=== PATIENT | female | born 1960 | race American Indian/Alaskan Native ===

== ENCOUNTER 2017-05-31 05:46 | Emergency (ER) | payer MEDICAID, OTHER ==
[2017-05-31 05:47] VITALS: BMI 31.8
--- NOTE | 2017-05-31 06:01 | C.PDOC ---
Time Seen by Provider: 05/31/17 06:01 Past Medical History - Medical History PMH: Fractures (right shoulder) Surgical History: Denies: Pacemaker Family History: States: Unknown Family Hx - Social History Hx Alcohol Use: No Hx Substance Use: No - Immunization History Hx Tetanus Toxoid Vaccination: No Hx Influenza Vaccination: No Hx Pneumococcal Vaccination: No Disposition Counseled Patient/Family Regarding: Studies Performed, Diagnosis - Disposition Disposition Time: 06:01
[2017-05-31 06:07] VITALS: TEMP 98.1
--- NOTE | 2017-05-31 06:09 | C.PDOC ---
History Of Present Illness pt c/o bleeding gum. Has had tooth extraction and the site, #15, Was [id number]. No f/c/n/v. speaking in complete sentences No active bleeding observed now Time Seen by Provider: 05/31/17 06:01 Chief Complaint (Nursing): Dental Pain History Per: Patient History/Exam Limitations: no limitations Onset/Duration Of Symptoms: Hrs Current Symptoms Are (Timing): Still Present Severity: Moderate Pain Scale Rating Of: 4 Quality: Positive for: Dull Recent travel outside of the [place]: No Additional History Per: Patient Past Medical History Reviewed: Historical Data, Nursing Documentation, Vital Signs Vital Signs: Last Vital Signs Temp 98.1 F 05/31/17 05:58 Pulse 103 H 05/31/17 05:58 Resp 20 05/31/17 05:58 BP 188/104 H 05/31/17 05:58 Pulse Ox 98 05/31/17 06:14 - Medical History PMH: Fractures (right shoulder), HTN Surgical History: Denies: Pacemaker Family History: States: No Known Family Hx - Social History Hx Alcohol Use: Yes Hx Substance Use: No - Immunization History Hx Tetanus Toxoid Vaccination: No Hx Influenza Vaccination: No Hx Pneumococcal Vaccination: No Review Of Systems Constitutional: Negative for: Fever, Chills ENT: Positive for: Other (bleeding gum). Negative for: Mouth Pain Cardiovascular: Negative for: Chest Pain, Palpitations Respiratory: Negative for: Shortness of Breath Gastrointestinal: Positive for: Abdominal Pain (milf ruq). Negative for: Nausea , Vomiting Genitourinary: Negative for: Dysuria Musculoskeletal: Negative for: Back Pain Skin: Negative for: Rash Neurological: Negative for: Weakness Psych: Negative for: Anxiety Physical Exam - Physical Exam Appears: Non-toxic, No Acute Distress Skin: Warm, Dry Head: Normacephalic Eye(s): bilateral: Normal Inspection Gingiva: Bleeding (# 15 space) Neck: Supple Chest: Symmetrical Cardiovascular: Rhythm Regular Respiratory: No Rales, No Rhonchi, No Wheezing Gastrointestinal/Abdominal: Soft, No Tenderness, Distention Back: No CVA Tenderness Extremity: Normal ROM Extremity: Bilateral: Atraumatic Pulses: Left Dorsalis Pedis: Normal, Right Dorsalis Pedis: Normal Neurological/Psych: Oriented x3, Normal Speech, Normal Cognition Gait: Steady ED Course And Treatment - Laboratory Results Result Diagrams: 05/31/17 06:30 O2 Sat by Pulse Oximetry: 98 Pulse Ox Interpretation: Normal Disposition Counseled Patient/Family Regarding: Studies Performed, Diagnosis - Disposition Disposition Time: 06:08 Condition: FAIR Forms: [facility] (Nepali) - Clinical Impression Clinical Impression: Abdominal pain, Gingival bleeding Physician Patient Turnover Patient Signed Over To: Gina Bowser Handoff Comments: pending labs and dispo
[2017-05-31 06:45] LABS: BASO % 0.7 % (0.0-2.0); CHLORIDE 100 mmol/L (98-107); EOS # 0.2 K/uL (0.0-0.7); HEMATOCRIT 35.1 % (34.0-47.0); LYMPH # 1.9 K/uL (1.0-4.3); LYMPH % 50.6 % (20.0-40.0); MEAN CELL VOLUME 99.1 fL (81.0-99.0); MEAN CORPUSCULAR HGB CONC 34.3 g/dL (33.0-37.0); MEAN PLATELET VOLUME 8.2 fL (7.2-11.7); MONO # 0.4 K/uL (0.0-0.8); MONO % 12.1 % (0.0-10.0); NRBC % 0.2 % (0.0-2.0); RED CELL DISTRIBUTION WIDTH 16.4 % (11.5-14.5); WHITE BLOOD COUNT 3.7 K/uL (4.8-10.8)
[2017-05-31 06:46] LABS: POTASSIUM 4.3 mmol/L (3.6-5.2); SODIUM 128 mmol/L (132-148)
[2017-05-31 06:48] LABS: ALB/GLOB RATIO 0.5 (1.0-2.1); BILIRUBIN,TOTAL 1.7 mg/dL (0.2-1.3); CARBON DIOXIDE 19 mmol/L (22-30); GFR AFRICAN-AMERICAN > 60; TOTAL PROTEIN 8.7 g/dL (6.3-8.3)
[2017-05-31 06:49] LABS: ALKALINE PHOSPHATASE 167 U/L (38-126); ALT/SGPT 64 U/L (9-52); AST/SGOT 100 U/L (14-36); BLOOD UREA NITROGEN 5 mg/dL (7-17); CALCIUM 8.5 mg/dl (8.6-10.4); GLUCOSE,RANDOM 85 mg/dL (65-105)
[2017-05-31 07:09] LABS: URINE BILIRUBIN NEGATIVE (NEGATIVE); URINE BLOOD NEGATIVE (NEGATIVE); URINE COLOR Yellow (YELLOW); URINE GLUCOSE (UA) NORMAL (Normal); URINE KETONE NEGATIVE (NEGATIVE); URINE LEUKOCYTE ESTERASE NEG Leu/uL (Negative); URINE PROTEIN NEGATIVE (NEGATIVE); WBC URINE 2 /hpf (0-5)
[2017-05-31 07:28] LABS: INR 1.4
[2017-05-31 07:48] VITALS: RESP 18
[2017-05-31 08:17] VITALS: BP 157/75; O2SAT 100
[2017-05-31 08:24] VITALS: PULSE 88
== END 2017-05-31 08:23 | disposition home or self-care (01) ==
LOC: C.ER 05:46
DX: K06.8 Other specified disorders of gingiva and edentulous alveolar ridge (principal); R10.9 Unspecified abdominal pain; I10 Essential (primary) hypertension; F17.210 Nicotine dependence, cigarettes, uncomplicated

== ENCOUNTER 2017-08-10 22:22 | Emergency (ER) | payer OTHER ==
[2017-08-10 22:22] VITALS: BMI 31.8
[2017-08-10 22:33] VITALS: RESP 18
--- NOTE | 2017-08-10 22:59 | C.PDOC ---
Time Seen by Provider: 08/10/17 22:59 Chief Complaint (Nursing): ENT Problem Past Medical History Vital Signs: Last Vital Signs Temp 97.9 F 08/10/17 22:30 Pulse 109 H 08/10/17 22:30 Resp 18 08/10/17 22:30 BP 139/83 08/10/17 22:30 Pulse Ox 99 08/10/17 22:30 - Medical History PMH: Fractures (right shoulder), HTN Surgical History: Denies: Pacemaker Family History: States: Unknown Family Hx - Social History Hx Alcohol Use: Yes Hx Substance Use: No - Immunization History Hx Tetanus Toxoid Vaccination: No Hx Influenza Vaccination: No Hx Pneumococcal Vaccination: No ED Course And Treatment O2 Sat by Pulse Oximetry: 99 Disposition Counseled Patient/Family Regarding: Studies Performed, Diagnosis - Disposition Referrals: Grecia Stringer MD [Primary Care Provider] - Disposition Time: 22:59
--- NOTE | 2017-08-10 23:10 | C.PDOC ---
History Of Present Illness 57 y/o F c PMHx anemia p/w epistaxis intermittent x 3 weeks. Patient drank alcohol tonight and told daughter that she felt weak so daughter brought patient to ED. No active bleeding at this time. Patient states when she sticks a tissue in nostril sometimes, blood comes down. Otherwise, denies chest pain, dyspnea, vomiting, LOC. Patient also requesting sore on R leg to be seen as patient is diabetic. Time Seen by Provider: 08/10/17 22:59 Chief Complaint (Nursing): ENT Problem Past Medical History Vital Signs: Last Vital Signs Temp 97.9 F 08/10/17 22:30 Pulse 109 H 08/10/17 22:30 Resp 18 08/10/17 22:30 BP 139/83 08/10/17 22:30 Pulse Ox 99 08/10/17 23:37 - Medical History PMH: Fractures (right shoulder), HTN Surgical History: Denies: Pacemaker Family History: States: Unknown Family Hx - Social History Hx Alcohol Use: Yes Hx Substance Use: No - Immunization History Hx Tetanus Toxoid Vaccination: No Hx Influenza Vaccination: No Hx Pneumococcal Vaccination: No Review Of Systems Except As Marked, All Systems Reviewed And Found Negative. Constitutional: Negative for: Fever Cardiovascular: Negative for: Chest Pain Physical Exam - Physical Exam Additional Physical Exam Comments: Gen: No acute distress. Head: Normocephalic, atraumatic. Eyes: PERRL. ENT: Moist mucous membranes. No septal hematoma. No active bleeding. Neck: Supple. Chest: No tenderness. CV: Regular rate. Radial pulses 2+ bilaterally. Resp: Clear to auscultation bilaterally. Abd: Soft, nontender, nondistended. Extremities: No swelling or tenderness. Skin: Noninfected, shallow ulcer seen to R jefferson. Neuro: Alert, no focal deficit. ED Course And Treatment - Laboratory Results Result Diagrams: 08/10/17 23:17 O2 Sat by Pulse Oximetry: 99 Medical Decision Making Medical Decision Making: Patient states she has been applying hydrogen peroxide to wound. I instructed patient to discontinue hydrogen peroxide and to follow up with wound care clinic for wound management. Advised to use humidifier, vaseline to nostrils, and not to insert anything or digits into nostrils. Checked Hb due to prolonged blood loss and complaint of weakness. Patient in no distress. Hb 10. Patient's Hb 12 earlier this year. Also with thrombocytopenia, patient has seen Dr. Lui in the past and has had pancytopenia. This anemia likely not new but perhaps contributed by bleeding. Therefore, patient offered blood transfusion but she refused due to risks. She states she will follow up with Hematology as well as ENT. Instructed to return to ED for bleeding that does not stop after pressure applied. Mental status also likely due to alcohol intoxication. Patient will be chaperoned home by daughter. Disposition - Disposition Referrals: Radha Lui MD [Staff Provider] - Juvenal Sorensen MD [Staff Provider] - [facility] [place] [Outside] [facility] [Outside] Disposition Time: 23:40 Condition: STABLE Instructions: Nosebleed (ED), Anemia (ED) Forms: [facility] (Emirati) - Clinical Impression Clinical Impression: Anemia
[2017-08-10 23:20] LABS: BASO % 0.6 % (0.0-2.0); EOS # 0.4 K/uL (0.0-0.7); EOS % 8.3 % (0.0-4.0); HEMATOCRIT 28.9 % (34.0-47.0); LYMPH # 3.4 K/uL (1.0-4.3); MEAN CELL VOLUME 97.6 fL (81.0-99.0); MEAN CORPUSCULAR HEMOGLOBIN 34.1 pg (27.0-31.0); MEAN CORPUSCULAR HGB CONC 34.9 g/dL (33.0-37.0); MEAN PLATELET VOLUME 7.1 fL (7.2-11.7); MONO # 0.5 K/uL (0.0-0.8); MONO % 9.1 % (0.0-10.0); NRBC % 0.1 % (0.0-2.0); RED CELL DISTRIBUTION WIDTH 18.1 % (11.5-14.5); WHITE BLOOD COUNT 5.4 K/uL (4.8-10.8)
[2017-08-11 00:04] VITALS: BP 129/84; PULSE 96; TEMP 97.8; O2SAT 97
== END 2017-08-11 00:04 | disposition home or self-care (01) ==
LOC: C.ER 22:22 → SUPCPDRO 22:22 → C.ER 08-11 00:04
DX: D64.9 Anemia, unspecified (principal)

== ENCOUNTER 2018-12-16 23:28 | Inpatient (IN) | payer OTHER ==
[2018-12-16 23:29] VITALS: BMI 31.8
--- NOTE | 2018-12-16 23:59 | C.PDOC ---
History Of Present Illness Patient presents with SOV and increasing abdominal girth. Patient known to have cirrhosis and had ascites with paracentesis done 2 weeks ago but fluids have reaccumulated. Denies fever, chills, nausea, or vomiting. Time Seen by Provider: 12/16/18 23:59 Chief Complaint (Nursing): Abdominal Pain History Per: Patient History/Exam Limitations: no limitations Onset/Duration Of Symptoms: Days Current Symptoms Are (Timing): Still Present Severity: Moderate Pain Scale Rating Of: 4 Quality Of Discomfort: Unable To Describe Associated Symptoms: Other (SOB). denies: Fever, Chills, Nausea, Vomiting Exacerbating Factors: None Alleviating Factors: None Recent travel outside of the [place]: No Past Medical History Reviewed: Historical Data, Nursing Documentation, Vital Signs Vital Signs: Last Vital Signs Temp 98.1 F 12/16/18 23:32 Pulse 84 12/16/18 23:32 Resp 14 12/16/18 23:32 BP 146/87 12/16/18 23:32 Pulse Ox 100 12/16/18 23:32 Primary Care Provider: Grecia Stringer - Medical History PMH: Fractures (right shoulder), HTN Surgical History: Denies: Pacemaker Family History: States: No Known Family Hx - Social History Hx Alcohol Use: Yes Hx Substance Use: No - Immunization History Hx Tetanus Toxoid Vaccination: No Hx Influenza Vaccination: No Hx Pneumococcal Vaccination: No Review Of Systems Constitutional: Negative for: Fever, Chills Cardiovascular: Negative for: Chest Pain, Palpitations Respiratory: Positive for: Shortness of Breath. Negative for: Cough Gastrointestinal: Positive for: Other (Abdominal distention). Negative for: Nausea, Vomiting Neurological: Negative for: Weakness, Numbness Physical Exam - Physical Exam Appears: Non-toxic Skin: Warm, Dry Head: Normacephalic Oral Mucosa: Moist Chest: Symmetrical, No Tenderness Cardiovascular: Rhythm Regular Respiratory: No Rales, No Rhonchi, No Wheezing Gastrointestinal/Abdominal: Soft, No Tenderness, Distention (w/ positive fluid wave), Ascites Extremity: Pedal Edema (Trace) Neurological/Psych: Oriented x3 ED Course And Treatment - Laboratory Results Result Diagrams: 12/17/18 00:53 12/17/18 00:53 ECG: Interpreted By Me, Viewed By Me ECG Rhythm: Sinus Rhythm (83), Nonspecific Changes O2 Sat by Pulse Oximetry: 100 (Room air) Pulse Ox Interpretation: Normal Progress Note: EKG, blood work, CXR, and urinalysis ordered. Disposition Discussed With DrThanh: Grecia Stringer Comment: the pt on his service and took over the care at 1:44 AM Doctor Will See Patient In The: Hospital Counseled Patient/Family Regarding: Studies Performed, Diagnosis - Disposition Disposition: HOSPITALIZED Disposition Time: 23:59 Condition: FAIR Forms: [facility] (Ecuadorean) - POA Present On Arrival: Poor Glycemic Control - Clinical Impression Clinical Impression: Abdominal pain, Ascites - Scribe Statement The provider has reviewed the documentation as recorded by the Scribe Jeramie Farr All medical record entries made by the Scribe were at my direction and personally dictated by me. I have reviewed the chart and agree that the record accurately reflects my personal performance of the history, physical exam, medical decision making, and the department course for this patient. I have also personally directed, reviewed, and agree with the discharge instructions and disposition. Decision To Admit - Pt Status Changed To: Hospital Disposition Of: Observation - . Bed Request Type: Regular Admitting Physician: Jeramie Pollock Patient Diagnosis: Abdominal pain, Ascites
[2018-12-17 01:03] LABS: BASO % 0.9 % (0.0-2.0); EOS # 0.2 K/uL (0.0-0.7); EOS % 4.3 % (0.0-4.0); LYMPH # 1.6 K/uL (1.0-4.3); LYMPH % 39.5 % (20.0-40.0); MEAN CELL VOLUME 97.7 fL (81.0-99.0); MEAN CORPUSCULAR HEMOGLOBIN 32.7 pg (27.0-31.0); MEAN CORPUSCULAR HGB CONC 33.5 g/dL (33.0-37.0); MEAN PLATELET VOLUME 7.7 fL (7.2-11.7); MONO # 0.8 K/uL (0.0-0.8); MONO % 19.8 % (0.0-10.0); NEUT # 1.4 K/uL (1.8-7.0); NEUT % 35.5 % (50.0-75.0); NRBC % 0.1 % (0.0-2.0); RBC 3.75 Mil/uL (3.80-5.20); RED CELL DISTRIBUTION WIDTH 15.2 % (11.5-14.5); WHITE BLOOD COUNT 3.9 K/uL (4.8-10.8)
[2018-12-17 01:04] LABS: HEMOGLOBIN 12.3 g/dL (11.0-16.0)
[2018-12-17 01:13] LABS: ALB/GLOB RATIO 0.7 (1.0-2.1); ALBUMIN 2.8 g/dL (3.5-5.0); ALT/SGPT 54 U/L (9-52); AST/SGOT 83 U/L (14-36); BLOOD UREA NITROGEN 15 mg/dL (7-17); CALCIUM 8.6 mg/dl (8.6-10.4); GFR NON-AFRICAN AMERICAN 51; LIPASE 390 U/L (23-300)
[2018-12-17 02:15] VITALS: RESP 20
[2018-12-17] MEDS: (Novolin R) Insulin Human Regular 100 units/ml vial SC SCH ×4 (07:56→21:25)
[2018-12-17 08:24] LABS: ALB/GLOB RATIO 0.6 (1.0-2.1); ALBUMIN 2.1 g/dL (3.5-5.0); CALCIUM 8.3 mg/dl (8.6-10.4)
--- NOTE | 2018-12-17 08:32 | CP.PCM.CON ---
History of Present Illness - History of Present Illness History of Present Illness: CC sob with severe ascites HPI Pt with T2dm, Liver cirrhosis had paracentesis 2 weeks ago with re- accumulation. Pt admitted via ER with progressive sob and increasing abdominal girth. Review of Systems - Cardiovascular Cardiovascular: Dyspnea on Exertion, Leg Edema, Orthopnea - Respiratory Respiratory: Dyspnea, Dyspnea on Exertion Past Patient History - Past Medical History & Family History Past Medical History?: Yes - Past Social History Smoking Status: "2xweek" - CARDIAC Hx Cardiac Disorders: No Hx Angina: No Hx Atrial Fibrillation: No Hx Hypertension: Yes Hx Pacemaker: No - PULMONARY Hx Respiratory Disorders: No - NEUROLOGICAL Hx Paralysis: No - HEENT Hx Blind: Yes Hx Cataracts: Yes Other/Comment: uveitis, nearly blind - ENDOCRINE/METABOLIC Hx Endocrine Disorders: Yes Hx Diabetes Mellitus Type 2: Yes - HEMATOLOGICAL/ONCOLOGICAL Hx Blood Transfusions: No Hx Blood Transfusion Reaction: No Hx Hepatitis C: Yes - MUSCULOSKELETAL/RHEUMATOLOGICAL Hx Falls: No - PSYCHIATRIC Hx Substance Use: No - SURGICAL HISTORY Hx Surgeries: Yes Hx Cataract Extraction: Yes Hx Eye Surgery: Yes (cornea implant left) - ANESTHESIA Hx Anesthesia: Yes Hx Anesthesia Reactions: No Hx Malignant Hyperthermia: No Meds Allergies/Adverse Reactions: Allergies Allergy/AdvReac Type Severity Reaction Status Date / Time No Known Allergies Allergy Verified 08/10/17 22:33 - Medications Medications: Current Medications Carvedilol (Coreg) 6.25 mg PO BID [facility] Furosemide (Lasix) 40 mg IVP DAILY [facility] Home Med (Alendronate Sodium [Alendronate (Fosamax)]) 70 mg PO QWK [facility] Insulin Human Regular (Novolin R) 0 unit [facility]; Protocol Last Admin: 12/17/18 07:56 Dose: Not Given Losartan Potassium (Cozaar) 100 mg PO DAILY [facility] Pantoprazole Sodium (Protonix Ec Tab) 20 mg PO DAILY [facility] Spironolactone (Aldactone) 25 mg PO BID [facility] Physical Exam - Head Exam Head Exam: NORMAL INSPECTION - Eye Exam Additional comments: +legally blind - Neck Exam Neck exam: Positive for: Full Rom - Respiratory Exam Respiratory Exam: Decreased Breath Sounds - Cardiovascular Exam Cardiovascular Exam: REGULAR RHYTHM - GI/Abdominal Exam GI & Abdominal Exam: Distended, Soft Additional comments: Ascitic - Neurological Exam Neurological exam: Alert Results - Vital Signs Recent Vital Signs: Last Vital Signs Temp 98.3 F 12/17/18 07:25 Pulse 82 12/17/18 07:25 Resp 20 12/17/18 07:25 BP 109/66 12/17/18 07:25 Pulse Ox 99 12/17/18 07:25 - Labs Result Diagrams: 12/17/18 00:53 12/17/18 07:21 Labs: Laboratory Results - last 24 hr 12/16/18 12/17/18 12/17/18 23:32 00:53 00:53 WBC 3.9 L RBC 3.75 L Hgb 12.3 D Hct 36.6 MCV 97.7 MCH 32.7 H MCHC 33.5 RDW 15.2 H Plt Count 73 L D MPV 7.7 Neut % (Auto) 35.5 L Lymph % (Auto) 39.5 [place] % (Auto) 19.8 H Eos % (Auto) 4.3 H Baso % (Auto) 0.9 Neut # (Auto) 1.4 L Lymph # (Auto) 1.6 [place] # (Auto) 0.8 Eos # (Auto) 0.2 Baso # (Auto) 0.0 Sodium 136 Potassium 5.7 H Chloride 108 H Carbon Dioxide 21 L Anion Gap 13 BUN 15 Creatinine 1.1 Est GFR ( Amer) > 60 Est GFR (Non-Af Amer) 51 POC Glucose (mg/dL) 123 H Random Glucose 102 Calcium 8.6 Total Bilirubin 0.9 AST 83 H ALT 54 H Alkaline Phosphatase 193 H Ammonia Total Protein 7.0 Albumin 2.8 L Globulin 4.2 H Albumin/Globulin Ratio 0.7 L Lipase 390 H Alcohol, Quantitative < 10 12/17/18 12/17/18 00:53 07:21 WBC RBC Hgb Hct MCV MCH MCHC RDW Plt Count MPV Neut % (Auto) Lymph % (Auto) Hancock % (Auto) Eos % (Auto) Baso % (Auto) Neut # (Auto) Lymph # (Auto) [place]ancock # (Auto) Eos # (Auto) Baso # (Auto) Sodium 134 Potassium 4.8 Chloride 110 H Carbon Dioxide 20 L Anion Gap 10 BUN 17 Creatinine 1.4 H Est GFR ( Amer) 47 Est GFR (Non-Af Amer) 39 POC Glucose (mg/dL) Random Glucose 99 Calcium 8.3 L Total Bilirubin 0.4 AST 63 H D ALT 46 Alkaline Phosphatase 174 H Ammonia < 9 L Total Protein 5.7 L Albumin 2.1 L D Globulin 3.5 Albumin/Globulin Ratio 0.6 L Lipase Alcohol, Quantitative
[2018-12-17] MEDS ORDERED: ALENDRONATE SODIUM 70 MG PO SCH ×2 (10:00)
[2018-12-17] MEDS ORDERED: Home Med 1 UNIT (Omeprazole [Omeprazole] 20 MG) PO SCH (10:00)
[2018-12-17] MEDS ORDERED: Potassium Chloride 10 mEq ER Tab PO SCH ×2 (10:00)
--- NOTE | 2018-12-17 10:49 | CP.PCM.CON ---
<Luisana Lee - Last Filed: 12/17/18 13:14> History of Present Illness - History of Present Illness History of Present Illness: GI Fellow PGY 5 Consult Note This is a 58yF with a pmhx of HTN, DM, Decompensated liver cirrhosis from HCV and alcohol abuse presenting with complaints of abdominal distention and pain. Pt reports she knew about having liver issues 1 year ago but found out she had liver cirrhosis in October 2018 when she presented with ascites and had 3 paracentesis since then. Pt also reports she was given antibiotics for 7 days after last paracentesis unclear if SBP, not on abx ppx.She reports she found out about HCV infection 6 months ago and was going to start treatment today with a medication for 4 months, unable to recall name. She reports having an EGD and colonoscopy with her GI DrThanh Guerrero at [facility] [place]. Denies any varices or GI Bleeding, no records for review, and patient is on Coreg bid. Pt reports her last drink was 6 months ago and she drank alot of beer for years, unable to quantify. She reports being on water pills that are not helping. Pt reports this is her 4th time coming in for abdominal distention, last paracentesis was 2 weeks ago. She denies fevers, chills, nausea or vomiting. Pt had a CT A/P IV contrast 06/2017 which was positive for cirrhosis, moderate ascities, negative portal HTN, thrombus, +porcelain gallbladder. Pt reports gallbladder was taken out due to high risk with cirrhosis. ROS: A 12pt ROS was negative except as above. Pmhx: As stated in HPI Pshx: None per pt FHx: Denies HCC SH: alcohol abuse, last drink 6 months ago, denies tobacco and IVDA Past Patient History - Past Medical History & Family History Past Medical History?: Yes - Past Social History Smoking Status: "2xweek" - CARDIAC Hx Cardiac Disorders: No Hx Angina: No Hx Atrial Fibrillation: No Hx Hypertension: Yes Hx Pacemaker: No - PULMONARY Hx Respiratory Disorders: No - NEUROLOGICAL Hx Paralysis: No - HEENT Hx Blind: Yes Hx Cataracts: Yes Other/Comment: uveitis, nearly blind - ENDOCRINE/METABOLIC Hx Endocrine Disorders: Yes Hx Diabetes Mellitus Type 2: Yes - HEMATOLOGICAL/ONCOLOGICAL Hx Blood Transfusions: No Hx Blood Transfusion Reaction: No Hx Hepatitis C: Yes - MUSCULOSKELETAL/RHEUMATOLOGICAL Hx Falls: No - PSYCHIATRIC Hx Substance Use: No - SURGICAL HISTORY Hx Surgeries: Yes Hx Cataract Extraction: Yes Hx Eye Surgery: Yes (cornea implant left) - ANESTHESIA Hx Anesthesia: Yes Hx Anesthesia Reactions: No Hx Malignant Hyperthermia: No Meds Allergies/Adverse Reactions: Allergies Allergy/AdvReac Type Severity Reaction Status Date / Time No Known Allergies Allergy Verified 08/10/17 22:33 - Medications Medications: Current Medications Carvedilol (Coreg) 6.25 mg PO BID [facility] Furosemide (Lasix) 40 mg IVP DAILY [facility] Home Med (Alendronate Sodium [Alendronate (Fosamax)]) 70 mg PO QWK [facility] Insulin Human Regular (Novolin R) 0 unit SC ACHS [facility]; Protocol Last Admin: 12/17/18 07:56 Dose: Not Given Losartan Potassium (Cozaar) 100 mg PO DAILY [facility] Morphine Sulfate (Morphine) 2 mg IVP Q4 PRN PRN Reason: Pain, severe (8-10) Last Admin: 12/17/18 09:03 Dose: 2 mg Pantoprazole Sodium (Protonix Ec Tab) 20 mg PO DAILY [facility] Spironolactone (Aldactone) 25 mg PO BID [facility] Physical Exam - Constitutional Appears: Non-toxic, No Acute Distress - Head Exam Head Exam: ATRAUMATIC, NORMAL INSPECTION, NORMOCEPHALIC - Eye Exam Eye Exam: EOMI, Normal appearance, PERRL - ENT Exam ENT Exam: Mucous Membranes Moist - Neck Exam Neck exam: Positive for: Full Rom, Normal Inspection - Respiratory Exam Respiratory Exam: Decreased Breath Sounds, Rales, NORMAL BREATHING PATTERN - Cardiovascular Exam Cardiovascular Exam: REGULAR RHYTHM, RRR, +S1, +S2 - GI/Abdominal Exam GI & Abdominal Exam: Diminished Bowel Sounds, Distended, Firm, Tenderness. absent: Guarding, Organomegaly - Rectal Exam Rectal Exam: Deferred - Extremities Exam Extremities exam: Positive for: full ROM, pedal edema - Back Exam Back exam: NORMAL INSPECTION - Neurological Exam Neurological exam: Alert, Oriented x3 - Psychiatric Exam Psychiatric exam: Normal Affect, Normal Mood - Skin Skin Exam: Dry, Intact, Normal Color, Warm Results - Vital Signs Recent Vital Signs: Last Vital Signs Temp 98.3 F 12/17/18 07:25 Pulse 82 12/17/18 07:25 Resp 20 12/17/18 07:25 BP 109/66 12/17/18 07:25 Pulse Ox 99 12/17/18 08:46 - Labs Result Diagrams: 12/17/18 00:53 12/17/18 07:21 Labs: Laboratory Results - last 24 hr 12/16/18 12/17/18 12/17/18 23:32 00:53 00:53 WBC 3.9 L RBC 3.75 L Hgb 12.3 D Hct 36.6 MCV 97.7 MCH 32.7 H MCHC 33.5 RDW 15.2 H Plt Count 73 L D MPV 7.7 Neut % (Auto) 35.5 L Lymph % (Auto) 39.5 [place] % (Auto) 19.8 H Eos % (Auto) 4.3 H Baso % (Auto) 0.9 Neut # (Auto) 1.4 L Lymph # (Auto) 1.6 [place] # (Auto) 0.8 Eos # (Auto) 0.2 Baso # (Auto) 0.0 Sodium 136 Potassium 5.7 H Chloride 108 H Carbon Dioxide 21 L Anion Gap 13 BUN 15 Creatinine 1.1 Est GFR ( Amer) > 60 Est GFR (Non-Af Amer) 51 POC Glucose (mg/dL) 123 H Random Glucose 102 Calcium 8.6 Total Bilirubin 0.9 AST 83 H ALT 54 H Alkaline Phosphatase 193 H Ammonia Total Protein 7.0 Albumin 2.8 L Globulin 4.2 H Albumin/Globulin Ratio 0.7 L Lipase 390 H Alcohol, Quantitative < 10 12/17/18 12/17/18 00:53 07:21 WBC RBC Hgb Hct MCV MCH MCHC RDW Plt Count MPV Neut % (Auto) Lymph % (Auto) [place] % (Auto) Eos % (Auto) Baso % (Auto) Neut # (Auto) Lymph # (Auto) [place] # (Auto) Eos # (Auto) Baso # (Auto) Sodium 134 Potassium 4.8 Chloride 110 H Carbon Dioxide 20 L Anion Gap 10 BUN 17 Creatinine 1.4 H Est GFR ( Amer) 47 Est GFR (Non-Af Amer) 39 POC Glucose (mg/dL) Random Glucose 99 Calcium 8.3 L Total Bilirubin 0.4 AST 63 H D ALT 46 Alkaline Phosphatase 174 H Ammonia < 9 L Total Protein 5.7 L Albumin 2.1 L D Globulin 3.5 Albumin/Globulin Ratio 0.6 L Lipase Alcohol, Quantitative Assessment & Plan - Assessment and Plan (Free Text) Assessment: 1. Decompensated Cirrhosis etiology alcohol and HCV: MELD-NA: 17, CP: C 2. Ascites possible hx of SBP 3. Hx HE 4. LEONORA 5. Porcelain Gallbladder -Pt with ascites, plan for paracentesis today and order body fluid studies to r/o SBP -Continue lasix 40mg and increase aldactone to 100mg -Monitor electrolytes, urine electrolytes -Start IV albumin 25% 25g q8hrs with elevated Cr and ascites s/p paracentesis with 8L removed -Monitor renal function, maybe pre-renal -Pt with grade 1 HE, lactulose qd for 3-4BM goal daily -Pt on Coreg, unsure if pt has varices, HR 80s -Check INR and MELD labs daily -Low salt diet -Per pt, high risk for cholecystectomy -Pt has had a previous extensive workup with Dr. Hilton at [facility] – [place] and is planned to be treated for HCV, pt unclear about what medication. Pt reports EGD for variceal screening and no varices per patient. Recommend that patient follow up with Dr. Hilton once patient is discharged. <Nabeel Kramer - Last Filed: 12/17/18 13:36> Meds - Medications Medications: Current Medications Albumin Human (Albumin Human 25% (12.5 Gm/50 Ml)) 25 gm IV Q8 [facility] Carvedilol (Coreg) 6.25 mg PO BID [facility] Last Admin: 12/17/18 11:20 Dose: Not Given Furosemide (Lasix) 40 mg IVP DAILY [facility] Last Admin: 12/17/18 12:35 Dose: 40 mg Insulin Human Regular (Novolin R) 0 unit SC [facility]; Protocol Last Admin: 12/17/18 12:39 Dose: Not Given Lactulose (Enulose) 20 gm PO [facility] Losartan Potassium (Cozaar) 100 mg PO DAILY [facility] Last Admin: 12/17/18 11:20 Dose: Not Given Morphine Sulfate (Morphine) 2 mg IVP Q4 PRN PRN Reason: Pain, severe (8-10) Last Admin: 12/17/18 09:03 Dose: 2 mg Pantoprazole Sodium (Protonix Ec Tab) 20 mg PO DAILY [facility] Last Admin: 12/17/18 12:35 Dose: 20 mg Spironolactone (Aldactone) 25 mg PO BID [facility] Last Admin: 12/17/18 12:35 Dose: 25 mg Results - Vital Signs Recent Vital Signs: Last Vital Signs Temp 98.3 F 12/17/18 07:25 Pulse 80 12/17/18 12:15 Resp 20 12/17/18 07:25 BP 110/74 12/17/18 12:35 Pulse Ox 99 12/17/18 08:46 - Labs Result Diagrams: 12/17/18 00:53 12/17/18 07:21 Labs: Laboratory Results - last 24 hr 12/16/18 12/17/18 12/17/18 23:32 00:53 00:53 WBC 3.9 L RBC 3.75 L Hgb 12.3 D Hct 36.6 MCV 97.7 MCH 32.7 H MCHC 33.5 RDW 15.2 H Plt Count 73 L D MPV 7.7 Neut % (Auto) 35.5 L Lymph % (Auto) 39.5 [place] % (Auto) 19.8 H Eos % (Auto) 4.3 H Baso % (Auto) 0.9 Neut # (Auto) 1.4 L Lymph # (Auto) 1.6 [place] # (Auto) 0.8 Eos # (Auto) 0.2 Baso # (Auto) 0.0 PT INR Sodium 136 Potassium 5.7 H Chloride 108 H Carbon Dioxide 21 L Anion Gap 13 BUN 15 Creatinine 1.1 Est GFR ( Amer) > 60 Est GFR (Non-Af Amer) 51 POC Glucose (mg/dL) 123 H Random Glucose 102 Calcium 8.6 Total Bilirubin 0.9 AST 83 H ALT 54 H Alkaline Phosphatase 193 H Ammonia Total Protein 7.0 Albumin 2.8 L Globulin 4.2 H Albumin/Globulin Ratio 0.7 L Lipase 390 H Fluid Source Fluid Appearance Fluid WBC Fluid RBC Fluid Tot Cell Count Fluid Neutrophils Fluid Lymphocytes Fld Monocyte/Macrophag Fluid Comment Alcohol, Quantitative < 10 12/17/18 12/17/18 12/17/18 00:53 07:21 10:49 WBC RBC Hgb Hct MCV MCH MCHC RDW Plt Count MPV Neut % (Auto) Lymph % (Auto) [place] % (Auto) Eos % (Auto) Baso % (Auto) Neut # (Auto) Lymph # (Auto) [place] # (Auto) Eos # (Auto) Baso # (Auto) PT 15.0 H INR 1.4 Sodium 134 Potassium 4.8 Chloride 110 H Carbon Dioxide 20 L Anion Gap 10 BUN 17 Creatinine 1.4 H Est GFR ( Amer) 47 Est GFR (Non-Af Amer) 39 POC Glucose (mg/dL) Random Glucose 99 Calcium 8.3 L Total Bilirubin 0.4 AST 63 H D ALT 46 Alkaline Phosphatase 174 H Ammonia < 9 L Total Protein 5.7 L Albumin 2.1 L D Globulin 3.5 Albumin/Globulin Ratio 0.6 L Lipase Fluid Source Fluid Appearance Fluid WBC Fluid RBC Fluid Tot Cell Count Fluid Neutrophils Fluid Lymphocytes Fld Monocyte/Macrophag Fluid Comment Alcohol, Quantitative 12/17/18 11:27 WBC RBC Hgb Hct MCV MCH MCHC RDW Plt Count MPV Neut % (Auto) Lymph % (Auto) [place] % (Auto) Eos % (Auto) Baso % (Auto) Neut # (Auto) Lymph # (Auto) [place] # (Auto) Eos # (Auto) Baso # (Auto) PT INR Sodium Potassium Chloride Carbon Dioxide Anion Gap BUN Creatinine Est GFR ( Amer) Est GFR (Non-Af Amer) POC Glucose (mg/dL) Random Glucose Calcium Total Bilirubin AST ALT Alkaline Phosphatase Ammonia Total Protein Albumin Globulin Albumin/Globulin Ratio Lipase Fluid Source Peritoneal/ascites Fluid Appearance Sl cloudy Fluid WBC 310.0 H Fluid RBC 1935.0 H Fluid Tot Cell Count 100 H Fluid Neutrophils 3.0 H Fluid Lymphocytes 94.0 H Fld Monocyte/Macrophag 2 H Fluid Comment Alcohol, Quantitative Attending/Attestation - Attestation I have personally seen and examined this patient.: Yes I have fully participated in the care of the patient.: Yes I have reviewed all pertinent clinical information: Yes Notes (Text): 12/17/18 13:33 Patient seen and examined with PGY-5. Paracentesis done today and fluid studies are not suggestive of SBP. Patient on low dose diuretics but no Urine Lytes to assess Tiny and to adjust dose. Agree with 2g sodium, 1.5 liter fluid restriction. Check AFP and viral markers and vaccinate if HBV/HAV negative. Patient to begin DAA as outpatient but unaware of what was prescibed for ?4 months. May only be candidate for Epclusa due to decompensated cirrhosis. Discharge to follow up with Dr Hilton when medically stable.
[2018-12-17 10:59] LABS: INR 1.4
[2018-12-17] MEDS: Pantoprazole 20 mg EC Tab PO SCH ×2 (11:21→12:35)
[2018-12-17 11:30] LABS: BODY FLUID TYPE PERITONEAL/ASCITES
--- NOTE | 2018-12-17 11:37 | RAD ---
Date of service: 12/17/2018 PROCEDURE: CHEST RADIOGRAPH, 1 VIEW HISTORY: Ascites COMPARISON: None available. FINDINGS: LUNGS: The lungs are well inflated and clear. PLEURA: No pneumothorax or pleural effusion. CARDIOVASCULAR: The heart is normal in size. No aortic atherosclerotic calcifications present. OSSEOUS STRUCTURES: Within normal limits for the patient's age. VISUALIZED UPPER ABDOMEN: Normal. OTHER FINDINGS: None. IMPRESSION: No active pulmonary disease.
--- NOTE | 2018-12-17 11:49 | PCM.SURG1 ---
Surgeon's Initial Post Op Note - Surgeon's Notes Surgeon: Nirmal Damon MD Coding File Clerk: NONE Type of Anesthesia: Local Pre-Operative Diagnosis: Ascites, pain Operative Findings: US shows a large amount of ascites Post-Operative Diagnosis: Ascites, pain Operation Performed: US guided paracentesis Specimen/Specimens Removed: 8 liters of straw colored fluid Estimated Blood Loss: EBL {In ML}: 0 Blood Products Given: N/A Drains Used: No Drains Post-Op Condition: Fair Date of Surgery/Procedure: 12/17/18 Time of Surgery/Procedure: 11:45
[2018-12-17 12:44] LABS: BF GROSS APPEARANCE SL CLOUDY (CLEAR)
[2018-12-17 12:47] LABS: BODY FLUID MONO/MACROPHAGE 2 % (0-0); BODY FLUID TOTAL COUNT 100 (0-0)
--- NOTE | 2018-12-17 13:09 | US ---
Date of Procedure: 12/17/2018 PROCEDURE: Ultrasound-guided paracentesis, CPT 18430 Medications: 7 cc 1% Lidocaine HISTORY: Ascites, abdominal pain, cirrhosis TECHNIQUE: Following informed consent , the patient was placed supine on the stretcher and the site was marked. A limited abdominal ultrasound was performed that showed a large amount of intra-abdominal fluid. Procedural time out was called and the Pt's abdomen was marked and prepped and draped in the usual sterile fashion. Ultrasound-guided large volume paracentesis performed. A total of 8 liters of straw colored fluid was removed without complication. IMPRESSION: Ultrasound-guided large volume paracentesis.
--- NOTE | 2018-12-17 13:28 | CP.PCM.HP ---
History of Present Illness - History of Present Illness History of Present Illness: Pt with T2dm, Liver cirrhosis had paracentesis 2 weeks ago with re- accumulation. Pt admitted via ER with progressive sob and increasing abdominal girth. 58yF with a pmhx of HTN, DM, Decompensated liver cirrhosis from HCV and alcohol abuse presenting with complaints of abdominal distention and pain. Pt reports she knew about having liver issues 1 year ago but found out she had liver cirrhosis in October 2018 when she presented with ascites and had 3 paracentesis since then. ROS: A 12pt ROS was negative except as above. Pmhx: As stated in HPI Pshx: None per pt FHx: Denies HCC SH: alcohol abuse, last drink 6 months ago, denies tobacco and IVDA Present on Admission - Present on Admission Any Indicators Present on Admission: No History of DVT/PE: No History of Uncontrolled Diabetes: No Urinary Catheter: No Decubitus Ulcer Present: No History Surgical Site Infection Following: None Review of Systems - Review of Systems All systems: reviewed and no additional remarkable complaints except - Constitutional Constitutional: As Per HPI - EENT Eyes: absent: As Per HPI, Blind Spots, Blurred Vision, Change in Vision, Decreased Night Vision, Diplopia, Discharge, Dry Eye, Exophthalmos, Floaters, Irritation, Itchy Eyes, Loss of Peripheral Vision, Pain, Photophobia, Requires Corrective Lenses, Sees Flashes, Spots in Vision, Tunnel Vision, Other Visual Disturbances, Loss of Vision, Other Ears: absent: As Per HPI, Decreased Hearing, Ear Discharge, Ear Pain, Tinnitus, Abnormal Hearing, Disequilibrium, Dizziness, Other Nose/Mouth/Throat: absent: As Per HPI, Epistaxis, Nasal Congestion, Nasal Discharge, Nasal Obstruction, Nasal Trauma, Nose Pain, Post Nasal Drip, Sinus Pain, Sinus Pressure, Bleeding Gums, Change in Voice, Dental Pain, Dry Mouth, Dysphagia, Halitosis, Hoarsness, Lip Swelling, Mouth Lesions, Mouth Pain, Odynophagia, Sore Throat, Throat Swelling, Tongue Swelling, Facial Pain, Neck Pain, Neck Mass, Other - Breasts Breasts: absent: As Per HPI, Change in Shape, Mass, Pain, Nipple Discharge, Nipple Inversion, Skin Changes, Swelling, Other - Cardiovascular Cardiovascular: As Per HPI - Respiratory Respiratory: As Per HPI - Gastrointestinal Gastrointestinal: As Per HPI - Genitourinary Genitourinary: absent: As Per HPI, Change in Urinary Stream, Difficulty Urinating, Dysuria, Flank Pain, Hematuria, Pyuria, Nocturia, Urinary Incontinence, Urinary Frequency, Urinary Hesitance, Urinary Urgency, Voiding Freq/Small Amts, Freq UTI, Hx Renal/Bladder Calculi, Hx /Renal Surgery, Bladder Distension, Other - Reproductive: Female Reproductive:Female: absent: As Per HPI, Amenorrhea, Amenorrhea/ Control, Currently Menstual, Cycle <21 Days, Cycle >35 Days, Cycle Variable, Menses 1-7 Days, Menses >/= 8 Days, Menses Variable, Cycle > 4 Weeks Between, No Menses for 6 Months, Heavy Menses, Light Menses, Normal Menses, Spotting Between Cycles, S/P Hysterectomy, Menopausal, Post Menopausal, Premenarche, Abnormal Vaginal Bleeding, Dysmenorrhea, Dyspareunia, Genital Lesions, Genital Pruritis, Pelvic Pain, Prolapse Symptoms, Sexual Dysfunction, Vaginal Discharge, Vaginal Dryness, Vaginal Odor, Vaginal Pruritis, Other - Menstruation Menstruation: absent: As Per HPI, Amenorrhea, Amenorrhea/ Control, Currently Menstual, Cycle <21 Days, Cycle >35 Days, Cycle Variable, Menses 1-7 Days, Menses >/= 8 Days, Menses Variable, Cycle > 4 Weeks Between, No Menses for 6 Months, Heavy Menses, Light Menses, Normal Menses, Spotting Between Cycles, S/P Hysterectomy, Menopausal, Post Menopausal, Premenarche, Abnormal Vaginal Bleeding, Dysmenorrhea, Other - Musculoskeletal Musculoskeletal: absent: As Per HPI, Abnormal Gait, Arthralgias, Atrophy, Back Pain, Deformity, Joint Swelling, Limited Range of Motion, Loss of Height, Muscle Cramps, Muscle Weakness, Myalgias, Neck Pain, Numbness, Radiating Pain into Limb, Stiffness, Tingling, Other - Integumentary Integumentary: absent: As Per HPI, Acne, Alopecia, Bleeding Lesions, Change in Hair, Change in Nails, Change in Pigmentation, Changing Lesions, Dry Skin, Erythema, Furuncle, Hirsutism, Lesions, New Lesions, Non-Healing Lesions, Photosensitivity, Pruritus, Rash, Skin Pain, Skin Ulcer, Sores, Striae, Swelling, Unusual Bruising, Wounds, Jaundice, Other - Neurological Neurological: absent: As Per HPI, Abnormal Gait, Abnormal Hearing, Abnormal Movements, Abnormal Speech, Behavioral Changes, Burning Sensations, Confusion, Convulsions, Disequilibrium, Dizziness, Numbness, Focal Weakness, Frequent Falls, Headaches, Lack of Coordination, Loss of Vision, Memory Loss, Paresthesias, Radicular Pain, Restless Legs, Sensory Deficit, Syncope, Tingling, Tremor, Vertigo, Weakness, Other Visual Disturbances, Other - Psychiatric Psychiatric: absent: As Per HPI, Abnormal Sleep Pattern, Anhedonia, Anxiety, Auditory Hallucinations, Behavioral Changes, Change in Appetite, Change in Libido, Confusion, Depression, Difficulty Concentrating, Hallucinations, Homicidal Ideation, Hopelessness, Irritability, Memory Loss, Mood Swings, Panic Attacks, Paranoia, Suicidal Ideation, Visual Hallucinations, Tactile Hallucinations, Other - Endocrine Endocrine: absent: As Per HPI, Change in Body Appearance, Change in Libido, Cold Intolorance, Deepening of Voice, Excessive Sweating, Fatigue, Flushing, Heat Intolorance, Increase in Ring/Shoe/Hat Size, Palpitations, Polydipsia, Polyphagia, Polyuria, Other - Hematologic/Lymphatic Hematologic: As Per HPI Past Patient History - Past Medical History & Family History Past Medical History?: Yes - Past Social History Smoking Status: "2xweek" - CARDIAC Hx Cardiac Disorders: No Hx Angina: No Hx Atrial Fibrillation: No Hx Hypertension: Yes Hx Pacemaker: No - PULMONARY Hx Respiratory Disorders: No - NEUROLOGICAL Hx Paralysis: No - HEENT Hx Blind: Yes Hx Cataracts: Yes Other/Comment: uveitis, nearly blind - ENDOCRINE/METABOLIC Hx Endocrine Disorders: Yes Hx Diabetes Mellitus Type 2: Yes - HEMATOLOGICAL/ONCOLOGICAL Hx Blood Transfusions: No Hx Blood Transfusion Reaction: No Hx Hepatitis C: Yes - MUSCULOSKELETAL/RHEUMATOLOGICAL Hx Falls: No - PSYCHIATRIC Hx Substance Use: No - SURGICAL HISTORY Hx Surgeries: Yes Hx Cataract Extraction: Yes Hx Eye Surgery: Yes (cornea implant left) - ANESTHESIA Hx Anesthesia: Yes Hx Anesthesia Reactions: No Hx Malignant Hyperthermia: No Meds Allergies/Adverse Reactions: Allergies Allergy/AdvReac Type Severity Reaction Status Date / Time No Known Allergies Allergy Verified 08/10/17 22:33 Physical Exam - Constitutional Appears: Non-toxic, Chronically Ill - Head Exam Head Exam: NORMOCEPHALIC (x) - Eye Exam Eye Exam: absent: Scleral icterus Pupil Exam: NORMAL ACCOMODATION - ENT Exam ENT Exam: Mucous Membranes Dry - Neck Exam Neck exam: Negative for: Lymphadenopathy - Respiratory Exam Respiratory Exam: Decreased Breath Sounds, Prolonged Expiratory Phase, Rhonchi - Cardiovascular Exam Cardiovascular Exam: REGULAR RHYTHM, +S1, +S2 - GI/Abdominal Exam GI & Abdominal Exam: Diminished Bowel Sounds, Distended, Guarding, Tenderness Additional comments: + ascites - Rectal Exam Rectal Exam: Deferred - Exam Exam: NORMAL INSPECTION - Extremities Exam Extremities exam: Positive for: pedal edema - Back Exam Back exam: absent: CVA tenderness (L), CVA tenderness (R) - Neurological Exam Neurological exam: Alert, CN II-XII Intact, Oriented x3, Reflexes Normal - Psychiatric Exam Psychiatric exam: Depressed - Skin Skin Exam: Dry Results - Vital Signs Recent Vital Signs: Last Vital Signs Temp 98.3 F 12/17/18 07:25 Pulse 80 12/17/18 12:15 Resp 20 12/17/18 07:25 BP 110/74 12/17/18 12:35 Pulse Ox 99 12/17/18 08:46 - Labs Result Diagrams: 12/18/18 06:02 12/18/18 06:02 Labs: Laboratory Results - last 24 hr 12/16/18 12/17/18 12/17/18 23:32 00:53 00:53 WBC 3.9 L RBC 3.75 L Hgb 12.3 D Hct 36.6 MCV 97.7 MCH 32.7 H MCHC 33.5 RDW 15.2 H Plt Count 73 L D MPV 7.7 Neut % (Auto) 35.5 L Lymph % (Auto) 39.5 [place] % (Auto) 19.8 H Eos % (Auto) 4.3 H Baso % (Auto) 0.9 Neut # (Auto) 1.4 L Lymph # (Auto) 1.6 [place] # (Auto) 0.8 Eos # (Auto) 0.2 Baso # (Auto) 0.0 PT INR Sodium 136 Potassium 5.7 H Chloride 108 H Carbon Dioxide 21 L Anion Gap 13 BUN 15 Creatinine 1.1 Est GFR ( Amer) > 60 Est GFR (Non-Af Amer) 51 POC Glucose (mg/dL) 123 H Random Glucose 102 Calcium 8.6 Total Bilirubin 0.9 AST 83 H ALT 54 H Alkaline Phosphatase 193 H Ammonia Total Protein 7.0 Albumin 2.8 L Globulin 4.2 H Albumin/Globulin Ratio 0.7 L Lipase 390 H Fluid Source Fluid Appearance Fluid WBC Fluid RBC Fluid Tot Cell Count Fluid Neutrophils Fluid Lymphocytes Fld Monocyte/Macrophag Fluid Comment Alcohol, Quantitative < 10 12/17/18 12/17/18 12/17/18 00:53 07:21 10:49 WBC RBC Hgb Hct MCV MCH MCHC RDW Plt Count MPV Neut % (Auto) Lymph % (Auto) [place] % (Auto) Eos % (Auto) Baso % (Auto) Neut # (Auto) Lymph # (Auto) [place] # (Auto) Eos # (Auto) Baso # (Auto) PT 15.0 H INR 1.4 Sodium 134 Potassium 4.8 Chloride 110 H Carbon Dioxide 20 L Anion Gap 10 BUN 17 Creatinine 1.4 H Est GFR ( Amer) 47 Est GFR (Non-Af Amer) 39 POC Glucose (mg/dL) Random Glucose 99 Calcium 8.3 L Total Bilirubin 0.4 AST 63 H D ALT 46 Alkaline Phosphatase 174 H Ammonia < 9 L Total Protein 5.7 L Albumin 2.1 L D Globulin 3.5 Albumin/Globulin Ratio 0.6 L Lipase Fluid Source Fluid Appearance Fluid WBC Fluid RBC Fluid Tot Cell Count Fluid Neutrophils Fluid Lymphocytes Fld Monocyte/Macrophag Fluid Comment Alcohol, Quantitative 12/17/18 11:27 WBC RBC Hgb Hct MCV MCH MCHC RDW Plt Count MPV Neut % (Auto) Lymph % (Auto) [place] % (Auto) Eos % (Auto) Baso % (Auto) Neut # (Auto) Lymph # (Auto) [place] # (Auto) Eos # (Auto) Baso # (Auto) PT INR Sodium Potassium Chloride Carbon Dioxide Anion Gap BUN Creatinine Est GFR ( Amer) Est GFR (Non-Af Amer) POC Glucose (mg/dL) Random Glucose Calcium Total Bilirubin AST ALT Alkaline Phosphatase Ammonia Total Protein Albumin Globulin Albumin/Globulin Ratio Lipase Fluid Source Peritoneal/ascites Fluid Appearance Sl cloudy Fluid WBC 310.0 H Fluid RBC 1935.0 H Fluid Tot Cell Count 100 H Fluid Neutrophils 3.0 H Fluid Lymphocytes 94.0 H Fld Monocyte/Macrophag 2 H Fluid Comment Alcohol, Quantitative Assessment & Plan (1) LEONORA (acute kidney injury) Status: Acute (2) Abdominal pain Status: Acute (3) Ascites Status: Acute (4) Anemia Status: Acute (5) Elevated liver enzymes Status: Acute (6) Thrombocytopenia Status: Acute - Assessment and Plan (Free Text) Assessment: add IV antibiotics renal eval for LEONORA poor prognosis
[2018-12-17] MEDS: Albumin Human 25% (12.5 gm/50 ml) IV SCH ×2 (14:04→21:24)
[2018-12-17 19:53] LABS: BASO % 0.8 % (0.0-2.0); EOS # 0.1 K/uL (0.0-0.7); EOS % 3.8 % (0.0-4.0); LYMPH % 39.6 % (20.0-40.0); MEAN CELL VOLUME 97.1 fL (81.0-99.0); MEAN CORPUSCULAR HEMOGLOBIN 32.7 pg (27.0-31.0); MEAN CORPUSCULAR HGB CONC 33.6 g/dL (33.0-37.0); MEAN PLATELET VOLUME 7.3 fL (7.2-11.7); MONO # 0.5 K/uL (0.0-0.8); MONO % 18.2 % (0.0-10.0); NEUT % 37.6 % (50.0-75.0); NRBC % 0.2 % (0.0-2.0); RBC 2.93 Mil/uL (3.80-5.20); RED CELL DISTRIBUTION WIDTH 14.7 % (11.5-14.5); WHITE BLOOD COUNT 2.5 K/uL (4.8-10.8)
[2018-12-17 19:58] LABS: CALCIUM 8.2 mg/dl (8.6-10.4)
[2018-12-17 20:16] LABS: HEMOGLOBIN 9.6 g/dL (11.0-16.0)
[2018-12-17 20:29] LABS: HEPATITIS B SURFACE AG Negative (NEGATIVE)
[2018-12-18] MEDS: Albumin Human 25% (12.5 gm/50 ml) IV SCH ×3 (05:29→21:50)
[2018-12-18 06:14] LABS: HEMOGLOBIN 9.7 g/dL (11.0-16.0); MEAN CELL VOLUME 97.7 fL (81.0-99.0); MEAN CORPUSCULAR HEMOGLOBIN 32.6 pg (27.0-31.0); MEAN CORPUSCULAR HGB CONC 33.4 g/dL (33.0-37.0); MEAN PLATELET VOLUME 7.2 fL (7.2-11.7); RBC 2.98 Mil/uL (3.80-5.20); RED CELL DISTRIBUTION WIDTH 15.2 % (11.5-14.5)
[2018-12-18 06:21] LABS: WHITE BLOOD COUNT 1.9 K/uL (4.8-10.8)
[2018-12-18 06:32] LABS: ALB/GLOB RATIO 0.8 (1.0-2.1); ALBUMIN 2.3 g/dL (3.5-5.0); CALCIUM 8.5 mg/dl (8.6-10.4)
[2018-12-18 06:42] LABS: INR 1.5; PROTHROMBIN TIME 16.3 SECONDS (9.7-12.2)
[2018-12-18 06:51] LABS: HEPATITIS B SURFACE AG Negative (NEGATIVE)
[2018-12-18 06:57] LABS: HEPATITIS A IGM NEGATIVE (NEGATIVE); HEPATITIS B CORE AB NEGATIVE (NEGATIVE)
[2018-12-18] MEDS: (Novolin R) Insulin Human Regular 100 units/ml vial SC SCH ×4 (08:01→21:48)
[2018-12-18 08:26] LABS: HEPATITIS C ANTIBODY REACTIVE (NEGATIVE)
--- NOTE | 2018-12-18 09:39 | CP.PCM.PN ---
<Luisana Lee - Last Filed: 12/18/18 10:21> Subjective - Date & Time of Evaluation Date of Evaluation: 12/18/18 Time of Evaluation: 09:00 - Subjective Subjective: GI Fellow PGY5 Progress Note Pt seen and evaluated at bedside, she reports feeling better than yesterday, abdominal pain is improved. Tolerating diet with no nausea, vomiting. One BM this am. Denies any fevers or chills. Pt reports urinating alot. ROS: A 12pt ROS was negative except as above. Objective - Vital Signs/Intake and Output Vital Signs (last 24 hours): Temp Pulse Resp BP Pulse Ox 98.0 F 95 H 20 110/69 97 12/18/18 08:46 12/18/18 08:46 12/18/18 08:46 12/18/18 08:46 12/18/18 08:46 Intake and Output: 12/18/18 12/18/18 06:59 18:59 Intake Total 320 Balance 320 - Medications Medications: Current Medications Albumin Human (Albumin Human 25% (12.5 Gm/50 Ml)) 25 gm IV Q8 [facility] Last Admin: 12/18/18 05:29 Dose: 25 gm Carvedilol (Coreg) 6.25 mg PO BID [facility] Last Admin: 12/17/18 17:40 Dose: Not Given Furosemide (Lasix) 40 mg IVP DAILY [facility] Last Admin: 12/17/18 12:35 Dose: 40 mg Ceftriaxone Sodium 1 gm/ (Sodium Chloride) 100 mls @ 100 mls/hr IVPB Q12H [facility]; Protocol Last Admin: 12/18/18 06:34 Dose: 100 mls/hr Insulin Human Regular (Novolin R) 0 unit SC ACHS [facility]; Protocol Last Admin: 12/18/18 08:01 Dose: Not Given Lactulose (Enulose) 20 gm PO HS [facility] Last Admin: 12/17/18 21:23 Dose: 20 gm Losartan Potassium (Cozaar) 100 mg PO DAILY [facility] Last Admin: 12/17/18 11:20 Dose: Not Given Morphine Sulfate (Morphine) 2 mg IVP Q4 PRN PRN Reason: Pain, severe (8-10) Last Admin: 12/18/18 06:45 Dose: 2 mg Pantoprazole Sodium (Protonix Ec Tab) 20 mg PO DAILY [facility] Last Admin: 12/17/18 12:35 Dose: 20 mg Spironolactone (Aldactone) 25 mg PO BID [facility] Last Admin: 12/17/18 17:40 Dose: Not Given - Labs Labs: 12/18/18 06:02 12/18/18 06:02 PT 16.3 SECONDS (9.7-12.2) H 12/18/18 06:02 INR 1.5 12/18/18 06:02 - Constitutional Appears: Non-toxic, No Acute Distress, Older Than Stated Age - Head Exam Head Exam: ATRAUMATIC, NORMAL INSPECTION, NORMOCEPHALIC - Eye Exam Eye Exam: EOMI, Normal appearance, PERRL Pupil Exam: PERRL - ENT Exam ENT Exam: Mucous Membranes Moist - Neck Exam Neck Exam: Full ROM - Respiratory Exam Respiratory Exam: Clear to Ausculation Bilateral, NORMAL BREATHING PATTERN - Cardiovascular Exam Cardiovascular Exam: REGULAR RHYTHM, RRR, +S1, +S2 - GI/Abdominal Exam GI & Abdominal Exam: Soft, Tenderness, Normal Bowel Sounds. absent: Distended, Firm, Guarding, Rigid, Organomegaly - Rectal Exam Rectal Exam: Deferred - Extremities Exam Extremities Exam: Full ROM, Normal Inspection - Back Exam Back Exam: NORMAL INSPECTION - Neurological Exam Neurological Exam: Alert, Awake, Oriented x3 - Psychiatric Exam Psychiatric exam: Normal Affect, Normal Mood - Skin Skin Exam: Dry, Intact, Normal Color, Warm Assessment and Plan - Assessment and Plan (Free Text) Assessment: 1. Decompensated Cirrhosis etiology alcohol and HCV: MELD-NA: 17, CP: C on admission 2. Ascites possible hx of SBP in recent past 3. Hx HE 4. LEONORA 5. Porcelain Gallbladder -MELD:17 -Pt with ascites, s/p paracentesis with 8L removed, body fluid studies negative for SBP, gram stain negative -Continue IV albumin 25% 25g q8hrs with elevated Cr and ascites -ID started IV abx Rocephin with leukopenia and hx of SBP, will most likely need SBP ppx -Continue lasix 40mg and aldactone to 25mg bid, waiting for urine lytes to adjust diuretics -Monitor electrolytes, urine electrolytes ordered -Elevated Cr slightly better 1.3 from 1.4, BP stable, continue albumin, Nephro cs -Monitor renal function, maybe pre-renal -Pt with grade 1 HE, lactulose qd for 3-4BM goal daily -Pt on Coreg, unsure if pt has varices, HR 80s -Check INR and MELD labs daily -Low salt diet, 1.5L fluid restriction -Per pt, high risk for cholecystectomy with porcelain gallbladder due to advanced cirrhosis -Pt with HepA Ab negative, HepB Ab negative, pt will need HepA/Bep B vaccines since not immunized -AFP elevated 19.9 will need HCC screening stat Abd US -Pt has had a previous extensive workup with Dr. Hilton at [facility] and is planned to be treated for HCV, pt unclear about what medication. Pt reports EGD for variceal screening and no varices per patient. Recommend that patient follow up with Dr. Hilton once patient is discharged. <Nabeel Kramer - Last Filed: 12/18/18 10:27> Objective - Vital Signs/Intake and Output Vital Signs (last 24 hours): Temp Pulse Resp BP Pulse Ox 98.0 F 95 H 20 115/71 97 12/18/18 08:46 12/18/18 08:46 12/18/18 08:46 12/18/18 10:21 12/18/18 08:46 Intake and Output: 12/18/18 12/18/18 06:59 18:59 Intake Total 320 Balance 320 - Medications Medications: Current Medications Albumin Human (Albumin Human 25% (12.5 Gm/50 Ml)) 25 gm IV Q8 [facility] Last Admin: 12/18/18 05:29 Dose: 25 gm Carvedilol (Coreg) 6.25 mg PO BID [facility] Last Admin: 12/18/18 10:20 Dose: 6.25 mg Furosemide (Lasix) 40 mg IVP DAILY [facility] Last Admin: 12/18/18 10:21 Dose: 40 mg Ceftriaxone Sodium 1 gm/ (Sodium Chloride) 100 mls @ 100 mls/hr IVPB Q12H [facility]; Protocol Last Admin: 12/18/18 06:34 Dose: 100 mls/hr Insulin Human Regular (Novolin R) 0 unit SC ACHS [facility]; Protocol Last Admin: 12/18/18 08:01 Dose: Not Given Lactulose (Enulose) 20 gm PO HS [facility] Last Admin: 12/17/18 21:23 Dose: 20 gm Losartan Potassium (Cozaar) 100 mg PO DAILY [facility] Last Admin: 12/18/18 10:21 Dose: 100 mg Morphine Sulfate (Morphine) 2 mg IVP Q4 PRN PRN Reason: Pain, severe (8-10) Last Admin: 12/18/18 06:45 Dose: 2 mg Pantoprazole Sodium (Protonix Ec Tab) 20 mg PO DAILY [facility] Last Admin: 12/18/18 10:20 Dose: 20 mg Spironolactone (Aldactone) 25 mg PO BID [facility] Last Admin: 12/18/18 10:21 Dose: 25 mg - Labs Labs: 12/18/18 06:02 12/18/18 06:02 PT 16.3 SECONDS (9.7-12.2) H 12/18/18 06:02 INR 1.5 12/18/18 06:02 Attending/Attestation - Attestation I have personally seen and examined this patient.: Yes I have fully participated in the care of the patient.: Yes I have reviewed all pertinent clinical information, including history, physical exam and plan: Yes Notes (Text): 12/18/18 10:23 Patient seen and examined with GI Fellow. Urine lytes not sent yesterday as ordered, awaiting to adjust diuretics. Antibiotics started by ID. Cultures and Gram stain negative. Discussed fluid restriction with patient. Need Sono +/- CT to assess for HCC given elevated AFP. Agree with need for HAV/HBV vaccines per CDC/NIH guidelines. Will follow.
[2018-12-18] MEDS: Pantoprazole 20 mg EC Tab PO SCH (10:20)
[2018-12-18] MEDS ORDERED: Hepatitis B Vaccine 20 mcg/mL Inj IM ONE (12:30)
[2018-12-18 13:34] LABS: SQUAMOUS EPITHIAL 4 /hpf (0-5); URINE BACTERIA RARE (<OCC); URINE BILIRUBIN NEGATIVE (NEGATIVE); URINE BLOOD NEGATIVE (NEGATIVE); URINE CLARITY Hazy (Clear); URINE COLOR Amber (YELLOW); URINE GLUCOSE (UA) NORMAL (Normal); URINE HYALINE CAST >20 /lpf (0-2); URINE LEUKOCYTE ESTERASE TRACE Leu/uL (Negative); URINE PROTEIN NEGATIVE (NEGATIVE)
--- NOTE | 2018-12-18 14:37 | CARD ---
APPROVED REPORT Date of service: 12/17/2018 EKG Measurement Heart [id number] <Conclusion> Normal sinus rhythm Low voltage QRS Borderline ECG
--- NOTE | 2018-12-18 15:29 | US ---
Date of service: 12/18/2018 HISTORY: r/o HCC elevated AFP COMPARISON: Comparison is made to the previous CT dated 07/06/2017 TECHNIQUE: Sonographic evaluation of the abdomen. FINDINGS: LIVER: Measures 18.4 cm. Cirrhotic manifestation with increased echogenicity of the liver parenchyma. No mass. No intrahepatic bile duct dilatation. GALLBLADDER: Multiple gallstones are noted. COMMON BILE DUCT: Measures 6 mm. No stones. No dilatation. PANCREAS: Unremarkable as visualized. No mass. No ductal dilatation. RIGHT KIDNEY: Measures 12.1 x 5.1 x 4.8cm. Normal echogenicity. No calculus, mass, or hydronephrosis. LEFT KIDNEY: Measures 11.1 x 5.1 x 5.5cm. Normal echogenicity. No calculus, mass, or hydronephrosis. SPLEEN: Mild splenomegaly noted measures up to 13.4 AORTA: No aneurysmal dilatation. IVC: Unremarkable. OTHER FINDINGS: Moderate amount of ascites noted in the abdomen. IMPRESSION: Cirrhotic manifestation and increased echogenicity of the liver noted. Mild splenomegaly and ascites suggestive of portal hypertension. Gallstones without definite evidence of acute cholecystitis. The portal vein and the hepatic veins are patent.
--- NOTE | 2018-12-18 16:27 | CP.PCM.CON ---
History of Present Illness - History of Present Illness History of Present Illness: pt is seen and examined, full consult is dictated #[id number] 1. non oliguric LEONORA 2. Cirrhosis of liver , r/o sbp 3. hTN 4. dm 5. pancytopenia sec to cirrhosis c/w albumin 25 % 100 ml q 8 hrs x2-3 days. retrict fluids to 1lit/day consider aldactone check urine lytes, osm, creatinine Past Patient History - Past Medical History & Family History Past Medical History?: Yes - Past Social History Smoking Status: "2xweek" - CARDIAC Hx Cardiac Disorders: No Hx Angina: No Hx Atrial Fibrillation: No Hx Hypertension: Yes Hx Pacemaker: No - PULMONARY Hx Respiratory Disorders: No - NEUROLOGICAL Hx Paralysis: No - HEENT Hx Blind: Yes Hx Cataracts: Yes Other/Comment: uveitis, nearly blind - ENDOCRINE/METABOLIC Hx Endocrine Disorders: Yes Hx Diabetes Mellitus Type 2: Yes - HEMATOLOGICAL/ONCOLOGICAL Hx Blood Transfusions: No Hx Blood Transfusion Reaction: No Hx Hepatitis C: Yes - MUSCULOSKELETAL/RHEUMATOLOGICAL Hx Falls: No - PSYCHIATRIC Hx Substance Use: No - SURGICAL HISTORY Hx Surgeries: Yes Hx Cataract Extraction: Yes Hx Eye Surgery: Yes (cornea implant left) - ANESTHESIA Hx Anesthesia: Yes Hx Anesthesia Reactions: No Hx Malignant Hyperthermia: No Meds Allergies/Adverse Reactions: Allergies Allergy/AdvReac Type Severity Reaction Status Date / Time No Known Allergies Allergy Verified 08/10/17 22:33 - Medications Medications: Current Medications Albumin Human (Albumin Human 25% (12.5 Gm/50 Ml)) 25 gm IV Q8 [facility] Stop: 12/19/18 14:01 Last Admin: 12/18/18 14:21 Dose: 25 gm Carvedilol (Coreg) 6.25 mg PO BID [facility] Last Admin: 12/18/18 10:20 Dose: 6.25 mg Furosemide (Lasix) 40 mg IVP DAILY [facility] Last Admin: 12/18/18 10:21 Dose: 40 mg Ceftriaxone Sodium 1 gm/ (Sodium Chloride) 100 mls @ 100 mls/hr IVPB Q12H [facility]; Protocol Last Admin: 12/18/18 06:34 Dose: 100 mls/hr Insulin Human Regular (Novolin R) 0 unit SC ACHS [facility]; Protocol Last Admin: 12/18/18 12:47 Dose: Not Given Lactulose (Enulose) 20 gm PO HS [facility] Last Admin: 12/17/18 21:23 Dose: 20 gm Losartan Potassium (Cozaar) 100 mg PO DAILY [facility] Last Admin: 12/18/18 10:21 Dose: 100 mg Morphine Sulfate (Morphine) 2 mg IVP Q4 PRN PRN Reason: Pain, severe (8-10) Last Admin: 12/18/18 11:09 Dose: 2 mg Pantoprazole Sodium (Protonix Ec Tab) 20 mg PO DAILY [facility] Last Admin: 12/18/18 10:20 Dose: 20 mg Spironolactone (Aldactone) 25 mg PO BID [facility] Last Admin: 12/18/18 10:21 Dose: 25 mg Results - Vital Signs Recent Vital Signs: Last Vital Signs Temp 98.0 F 12/18/18 08:46 Pulse 95 H 12/18/18 08:46 Resp 20 12/18/18 08:46 BP 115/71 12/18/18 10:21 Pulse Ox 97 12/18/18 12:00 - Labs Result Diagrams: 12/18/18 19:15 12/18/18 19:15 Labs: Laboratory Results - last 24 hr 12/17/18 12/17/18 12/17/18 19:39 19:39 19:39 WBC RBC Hgb Hct MCV MCH MCHC RDW Plt Count MPV Neut % (Auto) Lymph % (Auto) Runnels % (Auto) Eos % (Auto) Baso % (Auto) Neut # (Auto) Lymph # (Auto) R[place]els # (Auto) Eos # (Auto) Baso # (Auto) PT INR Sodium Potassium Chloride Carbon Dioxide Anion Gap BUN Creatinine Est GFR ( Amer) Est GFR (Non-Af Amer) Random Glucose Calcium Total Bilirubin AST ALT Alkaline Phosphatase Ammonia Total Protein Albumin Globulin Albumin/Globulin Ratio Alpha Fetoprotein 19.8 H Urine Color Urine Clarity Urine pH Ur Specific [place] Urine Protein Urine Glucose (UA) Urine Ketones Urine Blood Urine Nitrate Urine Bilirubin Urine Urobilinogen Ur Leukocyte Esterase Urine WBC (Auto) Urine RBC (Auto) Ur Squamous Epith Cells Urine Bacteria Hyaline Casts Ur Random Sodium Ur Random Potassium Hepatitis A IgM Ab Hepatitis A Ab Total Antibody neg Hep Bs Antigen Negative Hep Bs Antibody Negative Hep B Core IgM Ab Hepatitis C Antibody HIV 1&2 Antibody Screen 12/17/18 12/17/18 12/17/18 19:39 19:39 19:39 WBC 2.5 L RBC 2.93 L Hgb 9.6 L D Hct 28.4 L MCV 97.1 MCH 32.7 H MCHC 33.6 RDW 14.7 H Plt Count 50 L D MPV 7.3 Neut % (Auto) 37.6 L Lymph % (Auto) 39.6 Runnels % (Auto) 18.2 H Eos % (Auto) 3.8 Baso % (Auto) 0.8 Neut # (Auto) 1.0 L Lymph # (Auto) 1.0 Runnels # (Auto) 0.5 Eos # (Auto) 0.1 Baso # (Auto) 0.0 PT INR Sodium Potassium Chloride Carbon Dioxide Anion Gap BUN Creatinine Est GFR ( Amer) Est GFR (Non-Af Amer) Random Glucose Calcium Total Bilirubin AST ALT Alkaline Phosphatase Ammonia Total Protein Albumin Globulin Albumin/Globulin Ratio Alpha Fetoprotein Urine Color Urine Clarity Urine pH Ur Specific [place] Urine Protein Urine Glucose (UA) Urine Ketones Urine Blood Urine Nitrate Urine Bilirubin Urine Urobilinogen Ur Leukocyte Esterase Urine WBC (Auto) Urine RBC (Auto) Ur Squamous Epith Cells Urine Bacteria Hyaline Casts Ur Random Sodium Ur Random Potassium Hepatitis A IgM Ab Hepatitis A Ab Total Hep Bs Antigen Hep Bs Antibody Hep B Core IgM Ab Negative Hepatitis C Antibody Reactive HIV 1&2 Antibody Screen 12/17/18 12/18/18 12/18/18 19:39 06:02 06:02 WBC 1.9 L* RBC 2.98 L Hgb 9.7 L Hct 29.2 L MCV 97.7 MCH 32.6 H MCHC 33.4 RDW 15.2 H Plt Count 48 L MPV 7.2 Neut % (Auto) Lymph % (Auto) R[place] % (Auto) Eos % (Auto) Baso % (Auto) Neut # (Auto) Lymph # (Auto) [place] # (Auto) Eos # (Auto) Baso # (Auto) PT 16.3 H INR 1.5 Sodium 133 Potassium 5.2 Chloride 107 Carbon Dioxide 20 L Anion Gap 11 BUN 19 H Creatinine 1.4 H Est GFR ( Amer) 47 Est GFR (Non-Af Amer) 39 Random Glucose 120 H D Calcium 8.2 L Total Bilirubin AST ALT Alkaline Phosphatase Ammonia Total Protein Albumin Globulin Albumin/Globulin Ratio Alpha Fetoprotein Urine Color Urine Clarity Urine pH Ur Specific [place] Urine Protein Urine Glucose (UA) Urine Ketones Urine Blood Urine Nitrate Urine Bilirubin Urine Urobilinogen Ur Leukocyte Esterase Urine WBC (Auto) Urine RBC (Auto) Ur Squamous Epith Cells Urine Bacteria Hyaline Casts Ur Random Sodium Ur Random Potassium Hepatitis A IgM Ab Hepatitis A Ab Total Hep Bs Antigen Hep Bs Antibody Hep B Core IgM Ab Hepatitis C Antibody HIV 1&2 Antibody Screen 12/18/18 12/18/18 12/18/18 06:02 06:02 06:02 WBC RBC Hgb Hct MCV MCH MCHC RDW Plt Count MPV Neut % (Auto) Lymph % (Auto) [place] % (Auto) Eos % (Auto) Baso % (Auto) Neut # (Auto) Lymph # (Auto) [place] # (Auto) Eos # (Auto) Baso # (Auto) PT INR Sodium 134 Potassium 5.0 Chloride 110 H Carbon Dioxide 19 L Anion Gap 11 BUN 19 H Creatinine 1.3 H Est GFR ( Amer) 51 Est GFR (Non-Af Amer) 42 Random Glucose 110 H Calcium 8.5 L Total Bilirubin 0.4 AST 52 H ALT 40 Alkaline Phosphatase 130 H D Ammonia 31 D Total Protein 5.1 L Albumin 2.3 L Globulin 2.8 Albumin/Globulin Ratio 0.8 L Alpha Fetoprotein Urine Color Urine Clarity Urine pH Ur Specific [place] Urine Protein Urine Glucose (UA) Urine Ketones Urine Blood Urine Nitrate Urine Bilirubin Urine Urobilinogen Ur Leukocyte Esterase Urine WBC (Auto) Urine RBC (Auto) Ur Squamous Epith Cells Urine Bacteria Hyaline Casts Ur Random Sodium Ur Random Potassium Hepatitis A IgM Ab Negative Hepatitis A Ab Total Hep Bs Antigen Negative Hep Bs Antibody Hep B Core IgM Ab Negative Hepatitis C Antibody Reactive HIV 1&2 Antibody Screen 12/18/18 12/18/18 12/18/18 06:02 13:10 13:10 WBC RBC Hgb Hct MCV MCH MCHC RDW Plt Count MPV Neut % (Auto) Lymph % (Auto) [place] % (Auto) Eos % (Auto) Baso % (Auto) Neut # (Auto) Lymph # (Auto) [place] # (Auto) Eos # (Auto) Baso # (Auto) PT INR Sodium Potassium Chloride Carbon Dioxide Anion Gap BUN Creatinine Est GFR ( Amer) Est GFR (Non-Af Amer) Random Glucose Calcium Total Bilirubin AST ALT Alkaline Phosphatase Ammonia Total Protein Albumin Globulin Albumin/Globulin Ratio Alpha Fetoprotein Urine Color [place] Urine Clarity Hazy Urine pH 5.0 Ur Specific [place] 1.019 Urine Protein Negative Urine Glucose (UA) Normal Urine Ketones Negative Urine Blood Negative Urine Nitrate Negative Urine Bilirubin Negative Urine Urobilinogen 2.0 H Ur Leukocyte Esterase Trace Urine WBC (Auto) 7 H Urine RBC (Auto) 1 Ur Squamous Epith Cells 4 Urine Bacteria Rare Hyaline Casts >20 H Ur Random Sodium 14 Ur Random Potassium 40.4 Hepatitis A IgM Ab Hepatitis A Ab Total Hep Bs Antigen Hep Bs Antibody Hep B Core IgM Ab Hepatitis C Antibody HIV 1&2 Antibody Screen Negative
[2018-12-18 19:19] LABS: BASO % 0.4 % (0.0-2.0); EOS # 0.1 K/uL (0.0-0.7); EOS % 2.8 % (0.0-4.0); HEMOGLOBIN 9.1 g/dL (11.0-16.0); LYMPH # 0.8 K/uL (1.0-4.3); LYMPH % 35.3 % (20.0-40.0); MEAN CELL VOLUME 97.5 fL (81.0-99.0); MEAN CORPUSCULAR HEMOGLOBIN 32.7 pg (27.0-31.0); MEAN CORPUSCULAR HGB CONC 33.6 g/dL (33.0-37.0); MEAN PLATELET VOLUME 7.1 fL (7.2-11.7); MONO # 0.3 K/uL (0.0-0.8); MONO % 14.7 % (0.0-10.0); NEUT # 1.1 K/uL (1.8-7.0); NEUT % 46.8 % (50.0-75.0); NRBC % 0.1 % (0.0-2.0); RBC 2.79 Mil/uL (3.80-5.20); RED CELL DISTRIBUTION WIDTH 14.9 % (11.5-14.5); WHITE BLOOD COUNT 2.3 K/uL (4.8-10.8)
[2018-12-18 19:34] LABS: CALCIUM 8.6 mg/dl (8.6-10.4)
[2018-12-19] MEDS: Albumin Human 25% (12.5 gm/50 ml) IV SCH ×3 (05:21→21:45)
--- NOTE | 2018-12-19 05:47 | CP.PCM.PN ---
Subjective - Date & Time of Evaluation Date of Evaluation: 12/18/18 Time of Evaluation: 09:30 - Subjective Subjective: s/p paracentesis-8 liters taken out sitting comfortably on a chair no sob Objective - Vital Signs/Intake and Output Vital Signs (last 24 hours): Temp Pulse Resp BP Pulse Ox 98.7 F 85 20 98/60 L 99 12/18/18 23:40 12/19/18 00:23 12/18/18 23:40 12/19/18 00:29 12/18/18 23:40 Intake and Output: 12/18/18 12/19/18 18:59 06:59 Intake Total 1320 Balance 1320 - Medications Medications: Current Medications Albumin Human (Albumin Human 25% (12.5 Gm/50 Ml)) 25 gm IV Q8 [facility] Stop: 12/19/18 14:01 Last Admin: 12/19/18 05:21 Dose: 25 gm Carvedilol (Coreg) 6.25 mg PO BID [facility] Last Admin: 12/18/18 18:39 Dose: Not Given Furosemide (Lasix) 40 mg IVP DAILY [facility] Last Admin: 12/18/18 10:21 Dose: 40 mg Ceftriaxone Sodium 1 gm/ (Sodium Chloride) 100 mls @ 100 mls/hr IVPB Q12H [facility]; Protocol Last Admin: 12/18/18 19:45 Dose: 100 mls/hr Insulin Human Regular (Novolin R) 0 unit SC ACHS [facility]; Protocol Last Admin: 12/18/18 21:48 Dose: Not Given Lactulose (Enulose) 20 gm PO HS [facility] Last Admin: 12/17/18 21:23 Dose: 20 gm Losartan Potassium (Cozaar) 100 mg PO DAILY [facility] Last Admin: 12/18/18 10:21 Dose: 100 mg Morphine Sulfate (Morphine) 2 mg IVP Q4 PRN PRN Reason: Pain, severe (8-10) Last Admin: 12/18/18 11:09 Dose: 2 mg Pantoprazole Sodium (Protonix Ec Tab) 20 mg PO DAILY [facility] Last Admin: 12/18/18 10:20 Dose: 20 mg Spironolactone (Aldactone) 25 mg PO BID [facility] Last Admin: 12/18/18 18:39 Dose: Not Given - Labs Labs: 12/18/18 19:15 05/04/19 19:15 PT 16.3 SECONDS (9.7-12.2) H 12/18/18 06:02 INR 1.5 12/18/18 06:02 - Constitutional Appears: Non-toxic - Head Exam Head Exam: NORMAL INSPECTION - Eye Exam Eye Exam: absent: Scleral icterus Additional comments: legally blind - ENT Exam ENT Exam: Mucous Membranes Dry - Neck Exam Neck Exam: Full ROM - Respiratory Exam Respiratory Exam: Decreased Breath Sounds - Cardiovascular Exam Cardiovascular Exam: REGULAR RHYTHM - GI/Abdominal Exam GI & Abdominal Exam: Soft - Extremities Exam Extremities Exam: absent: Pedal Edema - Neurological Exam Neurological Exam: Alert Assessment and Plan - Assessment and Plan (Free Text) Assessment: Decompensated Liver disease Ascites Pancytopenia T2dm Plan: Abtx as per Dr Phill Beard consult with Dr Lui
--- NOTE | 2018-12-19 07:54 | CP.PCM.PN ---
<Luisana Lee - Last Filed: 12/19/18 08:21> Subjective - Date & Time of Evaluation Date of Evaluation: 12/19/18 Time of Evaluation: 07:00 - Subjective Subjective: GI Fellow PGY5 Progress Note Pt seen and evaluated at bedside, she reports feeling better, abdominal pain is improving. Tolerating diet with no nausea, vomiting. Two BM this am, denies melena or hematochezia. Denies any fevers or chills. Pt reports urinating alot. ROS: A 12pt ROS was negative except as above. Objective - Vital Signs/Intake and Output Vital Signs (last 24 hours): Temp Pulse Resp BP Pulse Ox 98.7 F 86 20 98/60 L 99 12/18/18 23:40 12/19/18 05:12 12/18/18 23:40 12/19/18 00:29 12/18/18 23:40 Intake and Output: 12/19/18 12/19/18 06:59 18:59 Intake Total 440 Balance 440 - Medications Medications: Current Medications Albumin Human (Albumin Human 25% (12.5 Gm/50 Ml)) 25 gm IV Q8 [facility] Stop: 12/19/18 14:01 Last Admin: 12/19/18 05:21 Dose: 25 gm Carvedilol (Coreg) 6.25 mg PO BID [facility] Last Admin: 12/18/18 18:39 Dose: Not Given Furosemide (Lasix) 40 mg IVP DAILY [facility] Last Admin: 12/18/18 10:21 Dose: 40 mg Ceftriaxone Sodium 1 gm/ (Sodium Chloride) 100 mls @ 100 mls/hr IVPB Q12H [facility]; Protocol Last Admin: 12/19/18 06:32 Dose: 100 mls/hr Insulin Human Regular (Novolin R) 0 unit SC ACHS [facility]; Protocol Last Admin: 12/18/18 21:48 Dose: Not Given Lactulose (Enulose) 20 gm PO HS [facility] Last Admin: 12/17/18 21:23 Dose: 20 gm Losartan Potassium (Cozaar) 100 mg PO DAILY [facility] Last Admin: 12/18/18 10:21 Dose: 100 mg Morphine Sulfate (Morphine) 2 mg IVP Q4 PRN PRN Reason: Pain, severe (8-10) Last Admin: 12/18/18 11:09 Dose: 2 mg Pantoprazole Sodium (Protonix Ec Tab) 20 mg PO DAILY [facility] Last Admin: 12/18/18 10:20 Dose: 20 mg Spironolactone (Aldactone) 25 mg PO BID [facility] Last Admin: 12/18/18 18:39 Dose: Not Given - Labs Labs: 12/18/18 19:15 12/18/18 19:15 PT 16.3 SECONDS (9.7-12.2) H 12/18/18 06:02 INR 1.5 12/18/18 06:02 - Constitutional Appears: Non-toxic, No Acute Distress - Head Exam Head Exam: ATRAUMATIC, NORMAL INSPECTION, NORMOCEPHALIC - Eye Exam Eye Exam: EOMI, Normal appearance, PERRL - ENT Exam ENT Exam: Mucous Membranes Moist - Neck Exam Neck Exam: Full ROM, Normal Inspection - Respiratory Exam Respiratory Exam: Clear to Ausculation Bilateral, NORMAL BREATHING PATTERN - Cardiovascular Exam Cardiovascular Exam: REGULAR RHYTHM, RRR, +S1, +S2 - GI/Abdominal Exam GI & Abdominal Exam: Soft, Normal Bowel Sounds. absent: Distended, Firm, Guarding - Rectal Exam Rectal Exam: Deferred - Extremities Exam Extremities Exam: Full ROM, Pedal Edema - Back Exam Back Exam: NORMAL INSPECTION - Neurological Exam Neurological Exam: Alert, Awake, Oriented x3 - Psychiatric Exam Psychiatric exam: Normal Affect, Normal Mood - Skin Skin Exam: Dry, Intact, Normal Color, Warm Assessment and Plan - Assessment and Plan (Free Text) Assessment: 1. Decompensated Cirrhosis etiology alcohol and HCV: MELD-NA: 17, CP: C on admission 2. Ascites possible hx of SBP in recent past 3. Hx HE 4. LEONORA 5. Porcelain Gallbladder -Pt with ascites, s/p paracentesis with 8L removed, body fluid studies negative for SBP, gram stain negative 12/17/18 -Continue IV albumin 25% 25g q8hrs with elevated Cr and ascites -IV abx per ID, blood cx negative -Hx of SBP, will most likely need SBP ppx -Urine lytes reviewed would benefit from increased lasix but low BP and K+4.9, so will keep at same dose -Will add midodrine due to low BP, will help with renal function and diuresis -Monitor electrolytes -Elevated Cr slightly better 1.3 from 1.4, labs pending today, Nephro cs reviewed -Monitor renal function -Anemia, monitor H/H, no overt GI Bleeding -Pt with grade 1 HE, lactulose qd for 3-4BM goal daily -Pt on Coreg, unsure if pt has varices, HR 80s but low BP, unable to titrate up -Check INR and MELD labs daily -Low salt diet, fluid restriction -AFP elevated 19.9, Abd US for HCC screening negative for Liver mass lesions -Per pt, high risk for cholecystectomy with porcelain gallbladder due to advanced cirrhosis -Pt with HepA Ab negative, HepB Ab negative, pt will need HepA/Bep B vaccines since not immunized: Hep B vaccine shot #1 given, need to finish serial shots with PCP, Hep A vaccine unavailable -Pt has had a previous extensive workup with Dr. Hilton at [facility] and is planned to be treated for HCV, pt unclear about what medication. Pt reports EGD for variceal screening and no varices per patient. Recommend that patient follow up with Dr. Hilton once patient is discharged. <Nabeel Kramer - Last Filed: 12/19/18 10:53> Objective - Vital Signs/Intake and Output Vital Signs (last 24 hours): Temp Pulse Resp BP Pulse Ox 98.2 F 86 20 114/68 100 12/19/18 08:29 12/19/18 08:29 12/19/18 08:29 12/19/18 10:26 12/19/18 08:29 Intake and Output: 12/19/18 12/19/18 06:59 18:59 Intake Total 440 Balance 440 - Medications Medications: Current Medications Albumin Human (Albumin Human 25% (12.5 Gm/50 Ml)) 25 gm IV Q8 [facility] Stop: 12/19/18 14:01 Last Admin: 12/19/18 05:21 Dose: 25 gm Carvedilol (Coreg) 6.25 mg PO BID [facility] Last Admin: 12/19/18 10:34 Dose: 6.25 mg Furosemide (Lasix) 40 mg IVP DAILY [facility] Last Admin: 12/19/18 10:26 Dose: 40 mg Ceftriaxone Sodium 1 gm/ (Sodium Chloride) 100 mls @ 100 mls/hr IVPB Q12H [facility]; Protocol Last Admin: 12/19/18 06:32 Dose: 100 mls/hr Insulin Human Regular (Novolin R) 0 unit SC ACHS [facility]; Protocol Last Admin: 12/19/18 08:33 Dose: Not Given Lactulose (Enulose) 20 gm PO HS [facility] Last Admin: 12/17/18 21:23 Dose: 20 gm Midodrine (Proamatine) 7.5 mg PO TID [facility] Last Admin: 12/19/18 10:32 Dose: 7.5 mg Morphine Sulfate (Morphine) 2 mg IVP Q4 PRN PRN Reason: Pain, severe (8-10) Last Admin: 12/18/18 11:09 Dose: 2 mg Pantoprazole Sodium (Protonix Ec Tab) 20 mg PO DAILY [facility] Last Admin: 12/19/18 10:34 Dose: 20 mg Spironolactone (Aldactone) 25 mg PO BID [facility] Last Admin: 12/19/18 10:34 Dose: 25 mg - Labs Labs: 12/18/18 19:15 12/18/18 19:15 PT 16.3 SECONDS (9.7-12.2) H 12/18/18 06:02 INR 1.5 12/18/18 06:02 Attending/Attestation - Attestation I have personally seen and examined this patient.: Yes I have fully participated in the care of the patient.: Yes I have reviewed all pertinent clinical information, including history, physical exam and plan: Yes Notes (Text): 12/19/18 10:50 No labs for today reported as of 11:00 when patient seen. Patient examined and discussed with GI Fellow who saw patient as well. Urine lytes indicate she may benefit from increased Furosemide dose but precluded by low BP. Borderline high K+ also prevents increasing of Spironolactone dose. Daily weights would be helpful. HBV vaccine #1 given and will need two more to complete series. Unclear as to duration of IV Abx per ID. Would benefit from oral prophylaxis due to her ascites/Cirrhosis and possible prior SBP. Repeat labs and will follow. Discharge planning for follow up with Dr Hilton. Still unaware of DAA to be started for her HCV given decompensation. (Mavyret would be contraindicated)
[2018-12-19] MEDS: (Novolin R) Insulin Human Regular 100 units/ml vial SC SCH ×4 (08:33→21:44)
[2018-12-19] MEDS: Pantoprazole 20 mg EC Tab PO SCH (10:34)
--- NOTE | 2018-12-19 11:06 | CON ---
DATE: 12/18/2018 RENAL CONSULTATION LOCATION: The patient is located in room 671, bed B. REQUESTED BY: Jeramie Pollock MD REASON FOR RENAL CONSULTATION: She has acute kidney injury and for further evaluation. HISTORY OF PRESENT ILLNESS: Mrs. Vargas is a 58-year-old middle-aged female with a past medical history significant for hypertension for 10 years, diabetes for 10 years, and status post corneal implant in left eye for uveitis and legally blind, ex-smoker and ex-alcohol abuse with cirrhosis of the liver diagnosed since 06/2017 with a history of hep C positive and cirrhosis of the liver with multiple paracentesis about 3-4 times since 10/2018 as per the patient. The patient was admitted on 12/17/2018 with abdominal distention and discomfort, and the patient underwent paracentesis yesterday and drained about 8 liters straw-colored fluid by the Interventional Radiology. The patient is on IV albumin. The patient is feeling slightly better today, less abdominal distention, less pain. Denies any chest pain or palpitation. Denies any fever or cough. Denies any nausea, vomiting, or diarrhea. PAST MEDICAL HISTORY: Significant for hypertension for 10 years, diabetes for 10 years, corneal implant in left eye, legally blind, history of uveitis, and status post corneal implant, cirrhosis of the liver, and chronic hepatitis C. SOCIAL HISTORY: The patient has an ex-smoker, used to smoke half-a-pack to one pack for about 30-40 years and quit about 6 months ago. Ex-alcohol abuse, used to drink a six-pack beer every other day for about 30 years and quit about 6 months ago. Denies any drug abuse. PERSONAL HISTORY: She has total of five children; one son and four daughters alive. FAMILY HISTORY: Both parents , father and mother, and she has three brothers healthy. CURRENT MEDICATIONS: Include as follows; albumin 12.5 g 100 mL IV every 8 hours, Aldactone 25 mg p.o. b.i.d., Rocephin 1 g every 12 hours, Coreg 6.25 mg p.o. b.i.d., losartan 100 mg p.o. daily, lactulose 20 g p.o. at bedtime, Lasix 40 mg IV daily, morphine sulfate 2 mg IV every 4 hours p.r.n., Novolin R per sliding scale, and Protonix 20 mg p.o. daily. REVIEW OF SYSTEMS: Significant for abdominal distention and abdominal pain. All other review of systems are reviewed and are negative. PHYSICAL EXAMINATION: GENERAL: Mrs. Vargas is a 58-year-old middle-aged female, moderately built, moderately nourished, not in acute distress. VITAL SIGNS: Blood pressure 104/72, pulse 89, respirations 20, temperature 97.9, and saturation 98%. Height 5 feet 2 inches, weight is 169 pounds. HEENT: Pupils normal, reactive to light and accommodation, legally blind, and conjunctivae pink. Sclerae anicteric. Tongue is moist, and trachea is midline. LUNGS: Symmetric on both sides. Bilateral breath sounds present. Clear to auscultation. CARDIOVASCULAR SYSTEM: [place] at the fifth intercostal space and midclavicular line. S1, S2 audible. No murmur or gallop. ABDOMEN: Less distended, soft. Mild diffuse tenderness. No guarding. No rigidity. No hepatosplenomegaly. CENTRAL NERVOUS SYSTEM: The patient is alert, awake, and oriented x3. Nonfocal neuro examination. Cranial nerves II through XII grossly intact. Sensory and motor system is within normal limits. EXTREMITIES: No cyanosis, no clubbing, no edema. The patient is legally blind. LABORATORY DATA: Include as follows; as of 12/17/2018, WBC of 2.5, hemoglobin 9.6, hematocrit is 28.4, platelets 50. PT 16.3, INR 1.5. Sodium 133, potassium 5.2, chloride 107, CO2 20, BUN 19, creatinine 1.4, glucose 120, calcium 8.2. Total bili 0.4, AST 52, ALT , alkaline phos is 130, total protein 5.1, albumin is 2.3. Alpha-fetoprotein is 19.8. Urinalysis as of 12/18/2018, dima color, hazy, pH 5, specific gravity 1.019, glucose negative, ketones negative, blood negative, nitrite negative, bilirubin negative, urobilinogen 2, leukocyte esterase trace, wbc 7, rbc 1, squamous epithelial cells 4, bacteria rare, hyaline cast more than 20, urine sodium is 14, and urine potassium is 40.4. OTHER LABORATORY DATA: Hepatitis C antibody IgM is negative. Hepatitis C total antibody is negative, B surface antigen negative, surface antibody negative, core antibody is negative, hep C antibody is positive, reactive, and HIV 1 and 2 antibody screening is also negative. Repeat labs as of 12/18/2018, WBC 2.3, hemoglobin 9.1, hematocrit is 27.2, platelets 42. Sodium 135, potassium 4.9, chloride 107, CO2 19, BUN 20, creatinine 1.3, glucose 139, calcium 8.6, GFR is about 51. As of 12/18/2018, creatinine 1.3. As of 12/17/2018, other creatinine is 1.4. As of 12/17/2018 at 0053 hours, creatinine is 1.1. Ascitic fluid appeared slightly cloudy. WBC 310, RBC 1935, and cell count 100, neutrophils 3, and lymph is 94%, macrophages 2. ASSESSMENT AND PLAN: In summary, Mrs. Vargas is a 58-year-old middle-aged female with a history of longstanding hypertension, diabetes, uveitis, cirrhosis of the liver and hepatitis C, legally blind, who was found to have a cirrhosis of the liver with CAT scan of the abdomen 07/06/2017 with irregular contour of the liver consistent with cirrhosis and moderate ascites and porcelain gallbladder as of 07/06/2017. 1. Nonoliguric acute renal failure. Rule out hepatorenal syndrome. 2. Cirrhosis of the liver secondary to hepatitis C and ethyl alcohol abuse. 3. Massive ascites, status post paracentesis and drained about eight liters of fluid. 4. Hypertension. Continue her antihypertensive medication. 5. Diabetes. Continue to monitor her sugars. I agree with intravenous albumin and Aldactone and Lasix. 6. Pancytopenia, most likely this is secondary to cirrhosis of the liver and also rule out spontaneous bacterial peritonitis. We will follow with you. Thank you for allowing me to participate in your patient's care. Follow up with ascitic fluid cultures. Consider for TIPS if the patient is a candidate to follow up with GI. Donna Kirk MD
--- NOTE | 2018-12-19 13:02 | CP.PCM.PN ---
Subjective - Date & Time of Evaluation Date of Evaluation: 12/19/18 Time of Evaluation: 13:02 - Subjective Subjective: pt is seen and examined, follow up consult is dictated #[id number] Objective - Vital Signs/Intake and Output Vital Signs (last 24 hours): Temp Pulse Resp BP Pulse Ox 98.2 F 86 20 114/68 100 12/19/18 08:29 12/19/18 08:29 12/19/18 08:29 12/19/18 10:26 12/19/18 08:29 Intake and Output: 12/19/18 12/19/18 06:59 18:59 Intake Total 440 Balance 440 - Medications Medications: Current Medications Albumin Human (Albumin Human 25% (12.5 Gm/50 Ml)) 25 gm IV Q8 [facility] Stop: 12/19/18 14:01 Last Admin: 12/19/18 05:21 Dose: 25 gm Carvedilol (Coreg) 6.25 mg PO BID [facility] Last Admin: 12/19/18 10:34 Dose: 6.25 mg Furosemide (Lasix) 40 mg IVP DAILY [facility] Last Admin: 12/19/18 10:26 Dose: 40 mg Ceftriaxone Sodium 1 gm/ (Sodium Chloride) 100 mls @ 100 mls/hr IVPB Q12H [facility]; Protocol Last Admin: 12/19/18 06:32 Dose: 100 mls/hr Insulin Human Regular (Novolin R) 0 unit SC ACHS [facility]; Protocol Last Admin: 12/19/18 12:24 Dose: Not Given Lactulose (Enulose) 20 gm PO HS [facility] Last Admin: 12/17/18 21:23 Dose: 20 gm Midodrine (Proamatine) 7.5 mg PO TID [facility] Last Admin: 12/19/18 10:32 Dose: 7.5 mg Morphine Sulfate (Morphine) 2 mg IVP Q4 PRN PRN Reason: Pain, severe (8-10) Last Admin: 12/18/18 11:09 Dose: 2 mg Pantoprazole Sodium (Protonix Ec Tab) 20 mg PO DAILY [facility] Last Admin: 12/19/18 10:34 Dose: 20 mg Spironolactone (Aldactone) 25 mg PO BID [facility] Last Admin: 12/19/18 10:34 Dose: 25 mg - Labs Labs: 12/18/18 19:15 05/04/19 19:15 PT 16.3 SECONDS (9.7-12.2) H 12/18/18 06:02 INR 1.5 12/18/18 06:02
[2018-12-19 18:08] LABS: BASO % 0.4 % (0.0-2.0); EOS # 0.1 K/uL (0.0-0.7); EOS % 2.5 % (0.0-4.0); HEMOGLOBIN 8.9 g/dL (11.0-16.0); LYMPH # 0.9 K/uL (1.0-4.3); LYMPH % 34.1 % (20.0-40.0); MEAN CELL VOLUME 97.3 fL (81.0-99.0); MEAN CORPUSCULAR HEMOGLOBIN 32.8 pg (27.0-31.0); MEAN CORPUSCULAR HGB CONC 33.7 g/dL (33.0-37.0); MONO # 0.5 K/uL (0.0-0.8); MONO % 19.2 % (0.0-10.0); NEUT # 1.2 K/uL (1.8-7.0); NEUT % 43.8 % (50.0-75.0); RBC 2.72 Mil/uL (3.80-5.20); WHITE BLOOD COUNT 2.7 K/uL (4.8-10.8)
[2018-12-19 18:24] LABS: BLOOD UREA NITROGEN 22 mg/dL (7-17); CALCIUM 8.6 mg/dl (8.6-10.4); GFR NON-AFRICAN AMERICAN 51
[2018-12-19 18:30] LABS: COMPLEMENT C3 < 40.0 mg/dL (88.0-165.0); COMPLEMENT C4 < 8.0 mg/dL (14.0-44.0)
--- NOTE | 2018-12-19 18:30 | CP.PCM.PN ---
Subjective - Date & Time of Evaluation Date of Evaluation: 12/19/18 Time of Evaluation: 08:00 - Subjective Subjective: less popain no fever cultures neg thus far Objective - Vital Signs/Intake and Output Vital Signs (last 24 hours): Temp Pulse Resp BP Pulse Ox 99.5 F 91 H 20 99/65 L 100 12/19/18 15:15 12/19/18 18:13 12/19/18 15:15 12/19/18 18:13 12/19/18 15:15 Intake and Output: 12/19/18 12/19/18 06:59 18:59 Intake Total 440 Balance 440 - Medications Medications: Current Medications Carvedilol (Coreg) 6.25 mg PO BID [facility] Last Admin: 12/19/18 18:10 Dose: Not Given Furosemide (Lasix) 40 mg IVP DAILY [facility] Last Admin: 12/19/18 10:26 Dose: 40 mg Ceftriaxone Sodium 1 gm/ (Sodium Chloride) 100 mls @ 100 mls/hr IVPB Q12H [facility]; Protocol Last Admin: 12/19/18 18:13 Dose: 100 mls/hr Insulin Human Regular (Novolin R) 0 unit SC ACHS [facility]; Protocol Last Admin: 12/19/18 12:24 Dose: Not Given Lactulose (Enulose) 20 gm PO HS [facility] Last Admin: 12/17/18 21:23 Dose: 20 gm Midodrine (Proamatine) 7.5 mg PO TID [facility] Last Admin: 12/19/18 18:09 Dose: 7.5 mg Morphine Sulfate (Morphine) 2 mg IVP Q4 PRN PRN Reason: Pain, severe (8-10) Last Admin: 12/18/18 11:09 Dose: 2 mg Pantoprazole Sodium (Protonix Ec Tab) 20 mg PO DAILY [facility] Last Admin: 12/19/18 10:34 Dose: 20 mg Spironolactone (Aldactone) 25 mg PO BID [facility] Last Admin: 12/19/18 18:10 Dose: Not Given - Labs Labs: 12/19/18 17:58 12/19/18 17:58 PT 16.3 SECONDS (9.7-12.2) H 12/18/18 06:02 INR 1.5 12/18/18 06:02 - Constitutional Appears: No Acute Distress, Chronically Ill - Head Exam Head Exam: NORMOCEPHALIC - Eye Exam Eye Exam: absent: PERRL, Scleral icterus Pupil Exam: NORMAL ACCOMODATION, PERRL Additional comments: legally blind - ENT Exam ENT Exam: Mucous Membranes Dry, Normal External Ear Exam - Neck Exam Neck Exam: Full ROM, Normal Inspection. absent: Lymphadenopathy - Respiratory Exam Respiratory Exam: Clear to Ausculation Bilateral, NORMAL BREATHING PATTERN - Cardiovascular Exam Cardiovascular Exam: REGULAR RHYTHM, +S1, +S2. absent: Murmur - GI/Abdominal Exam GI & Abdominal Exam: Distended, Soft, Tenderness. absent: Normal Bowel Sounds - Rectal Exam Rectal Exam: Deferred - Exam Exam: NORMAL INSPECTION - Extremities Exam Extremities Exam: Full ROM, Normal Capillary Refill, Normal Inspection. absent: Joint Swelling, Pedal Edema - Back Exam Back Exam: NORMAL INSPECTION - Neurological Exam Neurological Exam: Alert, Awake, CN II-XII Intact, Normal Gait, Oriented x3 - Psychiatric Exam Psychiatric exam: Normal Affect, Normal Mood - Skin Skin Exam: Dry, Intact, Normal Color, Warm Assessment and Plan (1) LEONORA (acute kidney injury) Status: Acute (2) Abdominal pain Status: Acute (3) Ascites Status: Acute (4) Anemia Status: Acute (5) Elevated liver enzymes Status: Acute (6) Thrombocytopenia Status: Acute (7) Blindness Status: Acute - Assessment and Plan (Free Text) Assessment: LEONORA improving s/p paracentesis cultures neg thus far cont IV rx for 5 days total GI follow up as out pt
[2018-12-20] MEDS: Albumin Human 25% (12.5 gm/50 ml) IV SCH (05:03)
--- NOTE | 2018-12-20 06:24 | PN ---
DATE: 12/19/2018 FOLLOWUP RENAL CONSULTATION LOCATION: The patient is located in room 671, bed B. REQUESTED BY: Jeramie Pollock MD REASON FOR EVALUATION: Acute renal failure. HISTORY OF PRESENT ILLNESS: The patient is a 58-year-old middle-aged -English female with a history of hypertension; diabetes; uveitis; status post left corneal transplant, legally blind; chronic hepatitis C positive; and cirrhosis of the liver since 06/2017 who was admitted with chief complaints of abdominal distention and pain and is status post paracentesis on admission 12/17, drained about 8 liters straw-colored fluid. The patient is on IV antibiotics for suspected SBP. The patient is feeling slightly better, less pain. No chest pain or palpitation. No shortness of breath. No nausea, no vomiting. PHYSICAL EXAMINATION: VITAL SIGNS: As follows. Blood pressure 110/66, pulse 84, respirations 20, temperature 99.5, saturation 100%. Height 5 feet 2 inches, weight is 169 pounds. GENERAL: The patient is a 58-year-old middle-aged female, moderately built, moderately nourished, not in distress. HEENT: Conjunctivae pink. Sclerae anicteric. Tongue is moist. Trachea is midline. LUNGS: Symmetric on both sides. Bilateral breath sounds present. Clear to auscultation. CARDIOVASCULAR SYSTEM: [place] at the fifth intercostal space, midclavicular line. S1, S2 audible. No murmur or gallop. ABDOMEN: Slightly distended, mild diffuse tenderness present. No guarding. No rigidity. No hepatosplenomegaly. CENTRAL NERVOUS SYSTEM: The patient is alert, awake, oriented x3. Nonfocal neuro examination. Cranial nerves II through XII grossly intact. Sensory and motor system is within normal limits. EXTREMITIES: No cyanosis, no clubbing, and no edema. CURRENT MEDICATIONS: Include as follows: Aldactone 25 mg p.o. b.i.d., Rocephin 1 g every 12 hours, Coreg 6.25 mg p.o. b.i.d., lactulose 20 g p.o. at bedtime, Lasix 40 mg IV daily, morphine sulfate 2 mg IV every 4 hours p.r.n., Novolin R per sliding scale, midodrine 7.5 mg p.o. t.i.d., and Protonix 20 mg p.o. daily. LABORATORY DATA AND DIAGNOSTIC DATA: Other reports; body fluid culture, ascitic fluid is negative day 2. Blood culture x2 negative day 1. Lab data include as follows: As of 12/19/2018 WBC 2.7, hemoglobin 8.9, hematocrit is 26.5, and platelets 43. Sodium 137, potassium 4.8, chloride 108, CO2 of 19, BUN 22, creatinine 1.1, glucose 119, calcium 8.6. Complement levels C3 is less than 40 and C4 is less than 8. Hep C antibody is reactive as of 12/18/2018. ASSESSMENT AND PLAN: In summary, Ms. Cortez is a 58-year-old middle-aged -English female with history of hypertension, diabetes, legally blind, status post left corneal implant, cirrhosis of the liver, hep C positive who was admitted with abdominal distention, abdominal pain, status post paracentesis, drained about 8 liters straw-colored fluid, history of multiple paracentesis in the last 2 months with increased BUN and creatinine. 1. Acute renal failure, most likely secondary to cirrhosis of the liver. Cannot rule out hepatorenal syndrome versus prerenal azotemia. 2. Status post paracentesis and drained about 8 liters, rule out spontaneous bacterial peritonitis. 3. Hep C positive with low complement levels. We will check cryoglobulin levels also. 4. Hypertension. 5. Diabetes. Sugars are under control. We will follow with you. Her renal function is improving. Thank you for allowing me to participate in your patient's care. Donna Kirk MD
[2018-12-20 07:41] LABS: HEMOGLOBIN 8.9 g/dL (11.0-16.0); MEAN CELL VOLUME 97.1 fL (81.0-99.0); MEAN CORPUSCULAR HEMOGLOBIN 33.5 pg (27.0-31.0); MEAN CORPUSCULAR HGB CONC 34.5 g/dL (33.0-37.0); MEAN PLATELET VOLUME 7.5 fL (7.2-11.7); RBC 2.66 Mil/uL (3.80-5.20); RED CELL DISTRIBUTION WIDTH 15.2 % (11.5-14.5); WHITE BLOOD COUNT 2.3 K/uL (4.8-10.8)
[2018-12-20 07:54] LABS: INR 1.6; PROTHROMBIN TIME 17.6 SECONDS (9.7-12.2)
[2018-12-20] MEDS: (Novolin R) Insulin Human Regular 100 units/ml vial SC SCH ×4 (07:54→21:27)
--- NOTE | 2018-12-20 08:17 | CP.PCM.PN ---
<Luisana Lee - Last Filed: 12/20/18 08:19> Subjective - Date & Time of Evaluation Date of Evaluation: 12/20/18 Time of Evaluation: 07:30 - Subjective Subjective: GI Fellow PGY5 Progress Note Pt seen and evaluated at bedside, she reports feeling better, abdominal pain is improving. Tolerating diet with no nausea, vomiting. One BM this am, denies melena or hematochezia. Denies any fevers or chills. ROS: A 12pt ROS was negative except as above. Objective - Vital Signs/Intake and Output Vital Signs (last 24 hours): Temp Pulse Resp BP Pulse Ox 98.8 F 101 H 20 131/74 96 12/20/18 07:35 12/20/18 07:35 12/20/18 07:35 12/20/18 07:35 12/20/18 07:35 Intake and Output: 12/20/18 12/20/18 06:59 18:59 Intake Total 400 Balance 400 - Medications Medications: Current Medications Carvedilol (Coreg) 6.25 mg PO BID [facility] Last Admin: 12/19/18 18:10 Dose: Not Given Furosemide (Lasix) 40 mg IVP DAILY [facility] Last Admin: 12/19/18 10:26 Dose: 40 mg Ceftriaxone Sodium 1 gm/ (Sodium Chloride) 100 mls @ 100 mls/hr IVPB Q12H [facility]; Protocol Last Admin: 12/20/18 06:13 Dose: 100 mls/hr Insulin Human Regular (Novolin R) 0 unit SC ACHS [facility]; Protocol Last Admin: 12/20/18 07:54 Dose: Not Given Lactulose (Enulose) 20 gm PO HS [facility] Last Admin: 12/19/18 21:45 Dose: 20 gm Midodrine (Proamatine) 7.5 mg PO TID [facility] Last Admin: 12/19/18 18:09 Dose: 7.5 mg Morphine Sulfate (Morphine) 2 mg IVP Q4 PRN PRN Reason: Pain, severe (8-10) Last Admin: 12/18/18 11:09 Dose: 2 mg Pantoprazole Sodium (Protonix Ec Tab) 20 mg PO DAILY [facility] Last Admin: 12/19/18 10:34 Dose: 20 mg Spironolactone (Aldactone) 25 mg PO BID [facility] Last Admin: 12/19/18 18:10 Dose: Not Given - Labs Labs: 12/20/18 07:32 12/19/18 17:58 PT 17.6 SECONDS (9.7-12.2) H 12/20/18 07:32 INR 1.6 12/20/18 07:32 - Constitutional Appears: Non-toxic, No Acute Distress - Head Exam Head Exam: ATRAUMATIC, NORMAL INSPECTION, NORMOCEPHALIC - Eye Exam Eye Exam: EOMI, Normal appearance, PERRL Pupil Exam: PERRL - ENT Exam ENT Exam: Mucous Membranes Moist, Normal Exam - Neck Exam Neck Exam: Full ROM, Normal Inspection - Respiratory Exam Respiratory Exam: Clear to Ausculation Bilateral, NORMAL BREATHING PATTERN - Cardiovascular Exam Cardiovascular Exam: REGULAR RHYTHM, RRR, +S1, +S2 - GI/Abdominal Exam GI & Abdominal Exam: Distended, Soft, Normal Bowel Sounds. absent: Firm, Guarding, Rigid, Organomegaly - Rectal Exam Rectal Exam: Deferred - Extremities Exam Extremities Exam: Full ROM, Pedal Edema - Neurological Exam Neurological Exam: Alert, Awake, Oriented x3 - Psychiatric Exam Psychiatric exam: Normal Affect, Normal Mood - Skin Skin Exam: Dry, Intact, Normal Color, Warm Assessment and Plan - Assessment and Plan (Free Text) Assessment: 1. Decompensated Cirrhosis etiology alcohol and HCV: MELD-NA: 17, CP: C on admission 2. Ascites possible hx of SBP in recent past 3. Hx HE 4. LEONORA-improving 5. Porcelain Gallbladder 6. Anemia -Pt with ascites, s/p paracentesis with 8L removed, body fluid studies negative for SBP, gram stain negative 12/17/18 -Completed IV albumin 25% 25g q8hrs for 3 days for elevated Cr and ascites -IV abx per ID, blood cx negative -Hx of SBP, will most likely need SBP ppx po -Urine lytes reviewed would benefit from increased lasix but low BP and K+4.9, so will keep at same dose -Continue midodrine due to low BP, will help with renal function and diuresis -Hold antihypertensive meds -Monitor electrolytes -Improved Cr -Pt with grade 1 HE, lactulose qd for 3-4BM goal daily -Pt on Coreg, unsure if pt has varices, HR 80s but low BP, unable to titrate up -Check INR and MELD labs daily -Low salt diet, fluid restriction -AFP elevated 19.9, Abd US for HCC screening negative for Liver mass lesions -Per pt, high risk for cholecystectomy with porcelain gallbladder due to advan eleno cirrhosis -Pt with HepA Ab negative, HepB Ab negative, pt will need HepA/Bep B vaccines since not immunized: Hep B vaccine shot #1 given, need to finish serial shots with PCP, Hep A vaccine unavailable -Anemia, monitor H/H, no overt GI Bleeding, follow up with primary GI -Pt has had a previous extensive workup with Dr. Hilton at [facility] and is planned to be treated for HCV, pt unclear about what medication. Pt reports EGD for variceal screening and no varices per patient. Recommend that patient follow up with Dr. Hilton once patient is discharged. <Nabeel Kramer - Last Filed: 12/20/18 08:43> Objective - Vital Signs/Intake and Output Vital Signs (last 24 hours): Temp Pulse Resp BP Pulse Ox 98.8 F 75 20 131/74 96 12/20/18 07:35 12/20/18 08:19 12/20/18 07:35 12/20/18 07:35 12/20/18 07:35 Intake and Output: 12/20/18 12/20/18 06:59 18:59 Intake Total 400 Balance 400 - Medications Medications: Current Medications Carvedilol (Coreg) 6.25 mg PO BID [facility] Last Admin: 12/19/18 18:10 Dose: Not Given Furosemide (Lasix) 40 mg IVP DAILY [facility] Last Admin: 12/19/18 10:26 Dose: 40 mg Ceftriaxone Sodium 1 gm/ (Sodium Chloride) 100 mls @ 100 mls/hr IVPB Q12H [facility]; Protocol Last Admin: 12/20/18 06:13 Dose: 100 mls/hr Insulin Human Regular (Novolin R) 0 unit SC ACHS [facility]; Protocol Last Admin: 12/20/18 07:54 Dose: Not Given Lactulose (Enulose) 20 gm PO HS [facility] Last Admin: 12/19/18 21:45 Dose: 20 gm Midodrine (Proamatine) 7.5 mg PO TID [facility] Last Admin: 12/19/18 18:09 Dose: 7.5 mg Morphine Sulfate (Morphine) 2 mg IVP Q4 PRN PRN Reason: Pain, severe (8-10) Last Admin: 12/18/18 11:09 Dose: 2 mg Pantoprazole Sodium (Protonix Ec Tab) 20 mg PO DAILY [facility] Last Admin: 12/19/18 10:34 Dose: 20 mg Spironolactone (Aldactone) 25 mg PO BID [facility] Last Admin: 12/19/18 18:10 Dose: Not Given - Labs Labs: 12/20/18 07:32 12/20/18 07:32 PT 17.6 SECONDS (9.7-12.2) H 12/20/18 07:32 INR 1.6 12/20/18 07:32 Attending/Attestation - Attestation I have personally seen and examined this patient.: Yes I have fully participated in the care of the patient.: Yes I have reviewed all pertinent clinical information, including history, physical exam and plan: Yes Notes (Text): 12/20/18 08:40 Patient seen and examined and case d/w GI Fellow. No c/o and tolerating solid diet. No bleeding or melena though mild drop in H/H noted. Renal function appears to be back to baseline and K=4.8. Consider increasing Furosemide but this can be regulated as outpatient if patient is compliant with salt and fluid restriction. ID advised five days of IV Abx, would favor SBP prophylaxis on discharge with appropriate coverage. Will need completion of HBV vaccination program. Out patient follow up with Dr Hilton who has not responded to attempts to reach him by Fellow. Will attempt to call again today. Defer EGD in absence of active bleeding or unexpected drop in H/H.
[2018-12-20 08:18] LABS: ALB/GLOB RATIO 1.3 (1.0-2.1); ALBUMIN 3.3 g/dL (3.5-5.0); ALT/SGPT 45 U/L (9-52); AST/SGOT 57 U/L (14-36); BLOOD UREA NITROGEN 20 mg/dL (7-17); CALCIUM 8.8 mg/dl (8.6-10.4); GFR NON-AFRICAN AMERICAN 57
[2018-12-20] MEDS: Pantoprazole 20 mg EC Tab PO SCH (09:42)
--- NOTE | 2018-12-20 13:17 | CARD ---
APPROVED REPORT Date of service: 12/17/2018 EXAM: Two-dimensional and M-mode echocardiogram with Doppler and color Doppler. Other Information Quality : GoodRhythm : INDICATION Dyspnea alcohol use RISK FACTORS Hypertension 2D DIMENSIONS IVSd1.0 (0.7-1.1cm)LVDd4.1 (3.9-5.9cm) PWd1.0 (0.7-1.1cm)LA Wffrlq07 (18-58mL) LVDs2.4 (2.5-4.0cm)FS (%) 40.7 % LVEF (%)72.0 (>50%)LVEF (Valerio's)65.61 % M-Mode DIMENSIONS Left Atrium (MM)3.45 (2.5-4.0cm)IVSd0.91 (0.7-1.1cm) Aortic Root3.28 (2.2-3.7cm)LVDd4.52 (4.0-5.6cm) Aortic Cusp Exc.2.10 (1.5-2.0cm)PWd0.77 (0.7-1.1cm) FS (%) 47 %LVDs2.39 (2.0-3.8cm) LVEF (%)77 (>50%) Mitral Valve MV E Yhuwatxv01.4cm/sMV A Rwjyzrns54.4cm/sE/A ratio0.8 TDI Lateral E' Peak V8.35cm/sMedial E' Peak V6.54cm/sE/Lateral E'7.1 E/Medial E'9.1 Tricuspid Valve TR Peak Fvesmekk992dn/sTR Peak Gr.[id number] <Conclusion> Left ventricle: thickness: normal; size: normal; overall ejection fraction: 65%: diastolic filling pressures: normal Mitral valve: annulus: normal: leaflets: normal: excursion: normal; no significant trans-mitral gradient: No significant incompetence: left atrium: normal Aortic valve: leaflets: normal: excursion: normal; no significant trans-aortic gradient: No significant incompetence: aortic root: normal Right sided Structures: Pulmonary valve: normal; no significant incompetence; Tricuspid valve: normal; no significant incompetence: Intra-cardiac hemodynamics: pulmonary systolic pressures: normal; central venous pressures: normal No pericardial effusion
--- NOTE | 2018-12-20 22:55 | CP.PCM.PN ---
Subjective - Date & Time of Evaluation Date of Evaluation: 12/20/18 Time of Evaluation: 08:00 - Subjective Subjective: awake alert NAD less swelling less pain Objective - Vital Signs/Intake and Output Vital Signs (last 24 hours): Temp Pulse Resp BP Pulse Ox 98.4 F 88 20 107/68 100 12/20/18 15:56 12/20/18 18:24 12/20/18 15:56 12/20/18 18:24 12/20/18 15:56 Intake and Output: 12/20/18 12/21/18 18:59 06:59 Intake Total 600 Balance 600 - Medications Medications: Current Medications Carvedilol (Coreg) 6.25 mg PO BID [facility] Last Admin: 12/20/18 18:24 Dose: Not Given Furosemide (Lasix) 40 mg IVP DAILY [facility] Last Admin: 12/20/18 09:42 Dose: 40 mg Ceftriaxone Sodium 1 gm/ (Sodium Chloride) 100 mls @ 100 mls/hr IVPB Q12H [facility]; Protocol Last Admin: 12/20/18 18:22 Dose: 100 mls/hr Insulin Human Regular (Novolin R) 0 unit SC ACHS [facility]; Protocol Last Admin: 12/20/18 21:27 Dose: Not Given Lactulose (Enulose) 20 gm PO HS [facility] Last Admin: 12/20/18 21:59 Dose: 20 gm Midodrine (Proamatine) 7.5 mg PO TID [facility] Last Admin: 12/20/18 18:21 Dose: 7.5 mg Morphine Sulfate (Morphine) 2 mg IVP Q4 PRN PRN Reason: Pain, severe (8-10) Last Admin: 12/18/18 11:09 Dose: 2 mg Pantoprazole Sodium (Protonix Ec Tab) 20 mg PO DAILY [facility] Last Admin: 12/20/18 09:42 Dose: 20 mg Spironolactone (Aldactone) 25 mg PO BID [facility] Last Admin: 12/20/18 18:24 Dose: 25 mg - Labs Labs: 12/20/18 07:32 12/20/18 07:32 PT 17.6 SECONDS (9.7-12.2) H 12/20/18 07:32 INR 1.6 12/20/18 07:32 - Constitutional Appears: Non-toxic, Chronically Ill - Head Exam Head Exam: NORMOCEPHALIC - Eye Exam Eye Exam: absent: Scleral icterus Additional comments: blind bilat - ENT Exam ENT Exam: Mucous Membranes Dry - Neck Exam Neck Exam: absent: Lymphadenopathy - Respiratory Exam Respiratory Exam: Decreased Breath Sounds - Cardiovascular Exam Cardiovascular Exam: REGULAR RHYTHM - GI/Abdominal Exam GI & Abdominal Exam: Distended, Soft - Rectal Exam Rectal Exam: Deferred - Exam Exam: NORMAL INSPECTION - Extremities Exam Extremities Exam: absent: Pedal Edema - Back Exam Back Exam: NORMAL INSPECTION - Neurological Exam Neurological Exam: Alert, Awake, CN II-XII Intact, Oriented x3 - Psychiatric Exam Psychiatric exam: Depressed - Skin Skin Exam: Dry Assessment and Plan (1) LEONORA (acute kidney injury) Status: Acute (2) Abdominal pain Status: Acute (3) Ascites Status: Acute (4) Anemia Status: Acute (5) Elevated liver enzymes Status: Acute (6) Thrombocytopenia Status: Acute (7) Blindness Status: Acute (8) SBP (spontaneous bacterial peritonitis) Status: Acute - Assessment and Plan (Free Text) Assessment: LEONORA resolved to complete 1 more day IV antibiiotics d/c in am cont cipro prohylaxis po 500mg daily follow up with Dr Stringer and GI
[2018-12-21 01:44] VITALS: TEMP 98.8
--- NOTE | 2018-12-21 05:43 | CP.PCM.PN ---
Subjective - Date & Time of Evaluation Date of Evaluation: 12/19/18 Time of Evaluation: 09:00 - Subjective Subjective: breathing comfortable abd still distended no fever cultures negative so far Objective - Vital Signs/Intake and Output Vital Signs (last 24 hours): Temp Pulse Resp BP Pulse Ox 98.8 F 72 20 102/66 98 12/20/18 23:45 12/21/18 04:27 12/20/18 23:45 12/20/18 23:45 12/20/18 23:45 Intake and Output: 12/20/18 12/21/18 18:59 06:59 Intake Total 600 Balance 600 - Medications Medications: Current Medications Carvedilol (Coreg) 6.25 mg PO BID [facility] Last Admin: 12/20/18 18:24 Dose: Not Given Furosemide (Lasix) 40 mg IVP DAILY [facility] Last Admin: 12/20/18 09:42 Dose: 40 mg Ceftriaxone Sodium 1 gm/ (Sodium Chloride) 100 mls @ 100 mls/hr IVPB Q12H [facility]; Protocol Last Admin: 12/20/18 18:22 Dose: 100 mls/hr Insulin Human Regular (Novolin R) 0 unit SC ACHS [facility]; Protocol Last Admin: 12/20/18 21:27 Dose: Not Given Lactulose (Enulose) 20 gm PO HS [facility] Last Admin: 12/20/18 21:59 Dose: 20 gm Midodrine (Proamatine) 7.5 mg PO TID [facility] Last Admin: 12/20/18 18:21 Dose: 7.5 mg Morphine Sulfate (Morphine) 2 mg IVP Q4 PRN PRN Reason: Pain, severe (8-10) Last Admin: 12/18/18 11:09 Dose: 2 mg Pantoprazole Sodium (Protonix Ec Tab) 20 mg PO DAILY [facility] Last Admin: 12/20/18 09:42 Dose: 20 mg Spironolactone (Aldactone) 25 mg PO BID [facility] Last Admin: 12/20/18 18:24 Dose: 25 mg - Labs Labs: 12/20/18 07:32 12/20/18 07:32 PT 17.6 SECONDS (9.7-12.2) H 12/20/18 07:32 INR 1.6 12/20/18 07:32 - Constitutional Appears: Non-toxic - Head Exam Head Exam: NORMAL INSPECTION - Eye Exam Eye Exam: absent: Scleral icterus Additional comments: +legally blind - ENT Exam ENT Exam: Mucous Membranes Moist - Neck Exam Neck Exam: Full ROM - Respiratory Exam Respiratory Exam: Decreased Breath Sounds - Cardiovascular Exam Cardiovascular Exam: REGULAR RHYTHM - GI/Abdominal Exam GI & Abdominal Exam: Soft - Exam Exam: NORMAL INSPECTION - Extremities Exam Extremities Exam: absent: Pedal Edema - Neurological Exam Neurological Exam: Alert, Oriented x3 Assessment and Plan - Assessment and Plan (Free Text) Assessment: Decompensated liver cirrhosis T2dm HTN Legally blind Plan: Cont abtx GI follow up
--- NOTE | 2018-12-21 05:49 | CP.PCM.PN ---
Subjective - Date & Time of Evaluation Date of Evaluation: 12/20/18 Time of Evaluation: 10:00 - Subjective Subjective: no fever NAD abdomen less distended Objective - Vital Signs/Intake and Output Vital Signs (last 24 hours): Temp Pulse Resp BP Pulse Ox 98.8 F 72 20 102/66 98 12/20/18 23:45 12/21/18 04:27 12/20/18 23:45 12/20/18 23:45 12/20/18 23:45 Intake and Output: 12/20/18 12/21/18 18:59 06:59 Intake Total 600 Balance 600 - Medications Medications: Current Medications Carvedilol (Coreg) 6.25 mg PO BID [facility] Last Admin: 12/20/18 18:24 Dose: Not Given Furosemide (Lasix) 40 mg IVP DAILY [facility] Last Admin: 12/20/18 09:42 Dose: 40 mg Ceftriaxone Sodium 1 gm/ (Sodium Chloride) 100 mls @ 100 mls/hr IVPB Q12H [facility]; Protocol Last Admin: 12/20/18 18:22 Dose: 100 mls/hr Insulin Human Regular (Novolin R) 0 unit SC ACHS [facility]; Protocol Last Admin: 12/20/18 21:27 Dose: Not Given Lactulose (Enulose) 20 gm PO HS [facility] Last Admin: 12/20/18 21:59 Dose: 20 gm Midodrine (Proamatine) 7.5 mg PO TID [facility] Last Admin: 12/20/18 18:21 Dose: 7.5 mg Morphine Sulfate (Morphine) 2 mg IVP Q4 PRN PRN Reason: Pain, severe (8-10) Last Admin: 12/18/18 11:09 Dose: 2 mg Pantoprazole Sodium (Protonix Ec Tab) 20 mg PO DAILY [facility] Last Admin: 12/20/18 09:42 Dose: 20 mg Spironolactone (Aldactone) 25 mg PO BID [facility] Last Admin: 12/20/18 18:24 Dose: 25 mg - Labs Labs: 12/20/18 07:32 12/20/18 07:32 PT 17.6 SECONDS (9.7-12.2) H 12/20/18 07:32 INR 1.6 12/20/18 07:32 - Constitutional Appears: Non-toxic - Head Exam Head Exam: NORMAL INSPECTION - Eye Exam Eye Exam: absent: Scleral icterus Additional comments: +legally blind - ENT Exam ENT Exam: Mucous Membranes Moist - Neck Exam Neck Exam: Full ROM - Respiratory Exam Respiratory Exam: Decreased Breath Sounds - Cardiovascular Exam Cardiovascular Exam: REGULAR RHYTHM - GI/Abdominal Exam GI & Abdominal Exam: Distended, Soft - Extremities Exam Extremities Exam: absent: Calf Tenderness, Pedal Edema Assessment and Plan - Assessment and Plan (Free Text) Assessment: Decompensated Liver Cirrhosis T2dm Ascites - r/o SBP, cultures negative so,far Plan: Cont abtx as ID Cont meds
[2018-12-21 07:35] LABS: BASO % 0.5 % (0.0-2.0); EOS # 0.1 K/uL (0.0-0.7); EOS % 2.6 % (0.0-4.0); HEMOGLOBIN 9.6 g/dL (11.0-16.0); LYMPH # 0.8 K/uL (1.0-4.3); MEAN CELL VOLUME 97.4 fL (81.0-99.0); MEAN CORPUSCULAR HEMOGLOBIN 33.5 pg (27.0-31.0); MEAN CORPUSCULAR HGB CONC 34.4 g/dL (33.0-37.0); MEAN PLATELET VOLUME 8.1 fL (7.2-11.7); MONO # 0.5 K/uL (0.0-0.8); MONO % 22.1 % (0.0-10.0); NEUT # 1.1 K/uL (1.8-7.0); NEUT % 42.8 % (50.0-75.0); NRBC % 0.1 % (0.0-2.0); PLATELET COUNT 41 K/uL (130-400); RBC 2.85 Mil/uL (3.80-5.20); RED CELL DISTRIBUTION WIDTH 14.9 % (11.5-14.5); WHITE BLOOD COUNT 2.5 K/uL (4.8-10.8)
[2018-12-21] MEDS: (Novolin R) Insulin Human Regular 100 units/ml vial SC SCH (07:51)
[2018-12-21 08:15] LABS: ALBUMIN 2.7 g/dL (3.5-5.0); ALT/SGPT 46 U/L (9-52); AST/SGOT 67 U/L (14-36); BLOOD UREA NITROGEN 20 mg/dL (7-17); CALCIUM 8.7 mg/dl (8.6-10.4); GFR NON-AFRICAN AMERICAN 57
[2018-12-21 08:41] VITALS: O2SAT 97
--- NOTE | 2018-12-21 08:55 | CP.PCM.PN ---
<Luisana Lee - Last Filed: 12/21/18 08:55> Subjective - Date & Time of Evaluation Date of Evaluation: 12/21/18 Time of Evaluation: 08:00 - Subjective Subjective: GI Fellow PGY5 Progress Note Pt seen and evaluated at bedside, she reports feeling better. Tolerating diet with no nausea, vomiting. Having 2-3 Bm daily, denies melena or hematochezia. Denies any fevers or chills. Abdomen feels more distended today. ROS: A 12pt ROS was negative except as above. Objective - Vital Signs/Intake and Output Vital Signs (last 24 hours): Temp Pulse Resp BP Pulse Ox 98.8 F 79 20 99/62 L 97 12/21/18 08:40 12/21/18 08:40 12/21/18 08:40 12/21/18 08:40 12/21/18 08:40 Intake and Output: 12/21/18 12/21/18 06:59 18:59 Intake Total 220 Balance 220 - Medications Medications: Current Medications Carvedilol (Coreg) 6.25 mg PO BID [facility] Last Admin: 12/20/18 18:24 Dose: Not Given Furosemide (Lasix) 40 mg IVP DAILY [facility] Last Admin: 12/20/18 09:42 Dose: 40 mg Ceftriaxone Sodium 1 gm/ (Sodium Chloride) 100 mls @ 100 mls/hr IVPB Q12H [facility]; Protocol Last Admin: 12/21/18 05:46 Dose: 100 mls/hr Insulin Human Regular (Novolin R) 0 unit SC ACHS [facility]; Protocol Last Admin: 12/21/18 07:51 Dose: Not Given Lactulose (Enulose) 20 gm PO HS [facility] Last Admin: 12/20/18 21:59 Dose: 20 gm Midodrine (Proamatine) 7.5 mg PO TID [facility] Last Admin: 12/20/18 18:21 Dose: 7.5 mg Morphine Sulfate (Morphine) 2 mg IVP Q4 PRN PRN Reason: Pain, severe (8-10) Last Admin: 12/18/18 11:09 Dose: 2 mg Pantoprazole Sodium (Protonix Ec Tab) 20 mg PO DAILY [facility] Last Admin: 12/20/18 09:42 Dose: 20 mg Spironolactone (Aldactone) 25 mg PO BID [facility] Last Admin: 12/20/18 18:24 Dose: 25 mg - Labs Labs: 12/21/18 07:22 12/21/18 07:22 PT 17.6 SECONDS (9.7-12.2) H 12/20/18 07:32 INR 1.6 12/20/18 07:32 - Constitutional Appears: Non-toxic, No Acute Distress - Head Exam Head Exam: ATRAUMATIC, NORMAL INSPECTION, NORMOCEPHALIC - Eye Exam Eye Exam: EOMI, Normal appearance, PERRL - ENT Exam ENT Exam: Mucous Membranes Moist, Normal Exam - Neck Exam Neck Exam: Full ROM, Normal Inspection - Respiratory Exam Respiratory Exam: Decreased Breath Sounds, NORMAL BREATHING PATTERN - Cardiovascular Exam Cardiovascular Exam: REGULAR RHYTHM, RRR, +S1, +S2 - GI/Abdominal Exam GI & Abdominal Exam: Distended, Soft, Normal Bowel Sounds. absent: Firm, Gua rding, Rigid, Tenderness - Extremities Exam Extremities Exam: Full ROM, Normal Inspection. absent: Pedal Edema - Neurological Exam Neurological Exam: Alert, Awake, Oriented x3 - Psychiatric Exam Psychiatric exam: Normal Affect, Normal Mood - Skin Skin Exam: Dry, Intact, Normal Color, Warm Assessment and Plan - Assessment and Plan (Free Text) Assessment: 1. Decompensated Cirrhosis etiology alcohol and HCV: MELD-NA: 17, CP: C on admission 2. Ascites possible hx of SBP in recent past 3. Hx HE 4. LEONORA-improving 5. Porcelain Gallbladder 6. Anemia -Pt with ascites, s/p paracentesis with 8L removed, body fluid studies negative for SBP, gram stain negative 12/17/18 -Pt will need scheduled paracentesis, needs to follow up with primary GI doctor -Completed IV albumin -IV abx per ID, blood cx negative -Hx of SBP, will most likely need SBP ppx po ciprofloxacin 500mg daily -Continue diuretics lasix/aldactone at current dose -Continue midodrine due to low BP -Hold antihypertensive meds -Improved Cr -Continue lactulose qd for 3-4BM goal daily -Pt on Coreg, unsure if pt has varices, HR 80s but low BP, unable to titrate up -Low salt diet, fluid restriction -AFP elevated 19.9, Abd US for HCC screening negative for Liver mass lesions -Pt will need HepA/Bep B vaccines since not immunized: Hep B vaccine shot #1 given, need to finish serial shots with PCP, Hep A vaccine unavailable -Anemia, Hgb stable, no overt GI Bleeding, follow up with primary GI -Pt has had a previous extensive workup with Dr. Hilton at [facility] and is planned to be treated for HCV, pt approved for ribavirin and epclusa. Discussed case with Dr. Hilton and gave him updates on patient management during this admission. Pt reports EGD for variceal screening and no varices per patient. Multiple attempts made to Dr. Guerrero's office for EGD reports, no calls returned. Recommend that patient follow up with Dr. Hilton once patient is discharged. <Nabeel Kramer - Last Filed: 12/21/18 10:01> Objective - Vital Signs/Intake and Output Vital Signs (last 24 hours): Temp Pulse Resp BP Pulse Ox 98.8 F 79 20 99/62 L 97 12/21/18 08:40 12/21/18 08:40 12/21/18 08:40 12/21/18 08:40 12/21/18 08:40 Intake and Output: 12/21/18 12/21/18 06:59 18:59 Intake Total 220 Balance 220 - Medications Medications: Current Medications Carvedilol (Coreg) 6.25 mg PO BID [facility] Last Admin: 12/20/18 18:24 Dose: Not Given Furosemide (Lasix) 40 mg IVP DAILY [facility] Last Admin: 12/20/18 09:42 Dose: 40 mg Ceftriaxone Sodium 1 gm/ (Sodium Chloride) 100 mls @ 100 mls/hr IVPB Q12H [facility]; Protocol Last Admin: 12/21/18 05:46 Dose: 100 mls/hr Insulin Human Regular (Novolin R) 0 unit SC ACHS [facility]; Protocol Last Admin: 12/21/18 07:51 Dose: Not Given Lactulose (Enulose) 20 gm PO HS [facility] Last Admin: 12/20/18 21:59 Dose: 20 gm Midodrine (Proamatine) 7.5 mg PO TID [facility] Last Admin: 12/20/18 18:21 Dose: 7.5 mg Pantoprazole Sodium (Protonix Ec Tab) 20 mg PO DAILY [facility] Last Admin: 12/20/18 09:42 Dose: 20 mg Spironolactone (Aldactone) 25 mg PO BID [facility] Last Admin: 12/20/18 18:24 Dose: 25 mg - Labs Labs: 12/21/18 07:22 12/21/18 07:22 PT 17.6 SECONDS (9.7-12.2) H 12/20/18 07:32 INR 1.6 12/20/18 07:32 Attending/Attestation - Attestation I have personally seen and examined this patient.: Yes I have fully participated in the care of the patient.: Yes I have reviewed all pertinent clinical information, including history, physical exam and plan: Yes Notes (Text): 12/21/18 09:58 Patient with some increase in swelling noted. No bleeding. Labs all stable. Would benefit from increase in Furosemide when BP permits. Patient for possible discharge. Will follow up with Dr Hilton as outpatient. Would be highly cautious with DAA treatment including ribavirin in patient with baseline hgb-10 due to expected 2-3g drop on riba. May benefit from extending the duration of treatment and using Harvoni instead. Recall as needed. Thank you.
--- NOTE | 2018-12-21 10:17 | CP.PCM.PN ---
Subjective - Date & Time of Evaluation Date of Evaluation: 12/21/18 Time of Evaluation: 08:00 - Subjective Subjective: seen by GI cleared for discharge Objective - Vital Signs/Intake and Output Vital Signs (last 24 hours): Temp Pulse Resp BP Pulse Ox 98.8 F 79 20 99/62 L 97 12/21/18 08:40 12/21/18 08:40 12/21/18 08:40 12/21/18 08:40 12/21/18 08:40 Intake and Output: 12/21/18 12/21/18 06:59 18:59 Intake Total 220 Balance 220 - Medications Medications: Current Medications Carvedilol (Coreg) 6.25 mg PO BID [facility] Last Admin: 12/20/18 18:24 Dose: Not Given Furosemide (Lasix) 40 mg IVP DAILY [facility] Last Admin: 12/20/18 09:42 Dose: 40 mg Ceftriaxone Sodium 1 gm/ (Sodium Chloride) 100 mls @ 100 mls/hr IVPB Q12H [facility]; Protocol Last Admin: 12/21/18 05:46 Dose: 100 mls/hr Insulin Human Regular (Novolin R) 0 unit SC ACHS [facility]; Protocol Last Admin: 12/21/18 07:51 Dose: Not Given Lactulose (Enulose) 20 gm PO HS [facility] Last Admin: 12/20/18 21:59 Dose: 20 gm Midodrine (Proamatine) 7.5 mg PO TID [facility] Last Admin: 12/20/18 18:21 Dose: 7.5 mg Pantoprazole Sodium (Protonix Ec Tab) 20 mg PO DAILY [facility] Last Admin: 12/20/18 09:42 Dose: 20 mg Spironolactone (Aldactone) 25 mg PO BID [facility] Last Admin: 12/20/18 18:24 Dose: 25 mg - Labs Labs: 12/21/18 07:22 12/21/18 07:22 PT 17.6 SECONDS (9.7-12.2) H 12/20/18 07:32 INR 1.6 12/20/18 07:32 - Constitutional Appears: Non-toxic, Chronically Ill - Head Exam Head Exam: ATRAUMATIC, NORMAL INSPECTION, NORMOCEPHALIC - Eye Exam Eye Exam: EOMI, Normal appearance, PERRL Pupil Exam: NORMAL ACCOMODATION, PERRL - ENT Exam ENT Exam: Mucous Membranes Moist, Normal Exam - Neck Exam Neck Exam: Full ROM, Normal Inspection. absent: Lymphadenopathy - Respiratory Exam Respiratory Exam: Clear to Ausculation Bilateral, NORMAL BREATHING PATTERN - Cardiovascular Exam Cardiovascular Exam: REGULAR RHYTHM, +S1, +S2. absent: Murmur - GI/Abdominal Exam GI & Abdominal Exam: Distended, Guarding, Soft, Normal Bowel Sounds. absent: Tenderness - Rectal Exam Rectal Exam: NORMAL INSPECTION - Exam Exam: NORMAL INSPECTION - Extremities Exam Extremities Exam: Full ROM, Normal Capillary Refill, Normal Inspection. absent: Joint Swelling, Pedal Edema - Back Exam Back Exam: NORMAL INSPECTION - Neurological Exam Neurological Exam: Alert, Awake, CN II-XII Intact, Normal Gait, Oriented x3 - Psychiatric Exam Psychiatric exam: Normal Affect, Normal Mood - Skin Skin Exam: Dry, Intact, Normal Color, Warm Assessment and Plan (1) LEONORA (acute kidney injury) Status: Acute (2) Abdominal pain Status: Acute (3) Ascites Status: Acute (4) Anemia Status: Acute (5) Elevated liver enzymes Status: Acute (6) Thrombocytopenia Status: Acute (7) Blindness Status: Acute (8) SBP (spontaneous bacterial peritonitis) Status: Acute - Assessment and Plan (Free Text) Assessment: d/c home on PO rx follow up Dr Hilton
[2018-12-21 10:31] LABS: BANDS 5 % (0-2); EOSINOPHIL 2 % (0-4); LYMPHOCYTE 30 % (20-40); MONOCYTE 20 % (0-10); NEUTROPHIL 43 % (50-75); PLATELET ESTIMATE DECREASED (NORMAL); TOTAL CELLS COUNTED 100
[2018-12-21 10:32] LABS: HYPOCHROMIC SLIGHT; OVALOCYTES SLIGHT
[2018-12-21] MEDS: Pantoprazole 20 mg EC Tab PO SCH (10:45)
--- NOTE | 2018-12-21 10:48 | CP.PCM.PN ---
Subjective - Date & Time of Evaluation Date of Evaluation: 12/21/18 Time of Evaluation: 11:00 Objective - Vital Signs/Intake and Output Vital Signs (last 24 hours): Temp Pulse Resp BP Pulse Ox 98.8 F 79 20 99/62 L 97 12/21/18 08:40 12/21/18 08:40 12/21/18 08:40 12/21/18 08:40 12/21/18 08:40 Intake and Output: 12/21/18 12/21/18 06:59 18:59 Intake Total 220 Balance 220 - Medications Medications: Current Medications Carvedilol (Coreg) 6.25 mg PO BID [facility] Last Admin: 12/21/18 10:45 Dose: 6.25 mg Furosemide (Lasix) 40 mg IVP DAILY [facility] Last Admin: 12/20/18 09:42 Dose: 40 mg Ceftriaxone Sodium 1 gm/ (Sodium Chloride) 100 mls @ 100 mls/hr IVPB Q12H [facility]; Protocol Last Admin: 12/21/18 05:46 Dose: 100 mls/hr Insulin Human Regular (Novolin R) 0 unit SC ACHS [facility]; Protocol Last Admin: 12/21/18 07:51 Dose: Not Given Lactulose (Enulose) 20 gm PO HS [facility] Last Admin: 12/20/18 21:59 Dose: 20 gm Midodrine (Proamatine) 7.5 mg PO TID [facility] Last Admin: 12/21/18 10:45 Dose: 7.5 mg Pantoprazole Sodium (Protonix Ec Tab) 20 mg PO DAILY [facility] Last Admin: 12/21/18 10:45 Dose: 20 mg Spironolactone (Aldactone) 25 mg PO BID [facility] Last Admin: 12/21/18 10:45 Dose: 25 mg - Labs Labs: 12/21/18 07:22 12/21/18 07:22 PT 17.6 SECONDS (9.7-12.2) H 12/20/18 07:32 INR 1.6 12/20/18 07:32
[2018-12-21 10:50] VITALS: BP 110/74
[2018-12-21 10:51] VITALS: PULSE 81
== END 2018-12-21 12:26 | disposition home or self-care (01) | DRG 463 ==
LOC: C.ER 23:28 → C.6T 12-17 01:43 → OBSVTOIN 12-19 12:03
PROVIDERS: ADMIT Internal Medicine; ATTEND Internal Medicine
PROC: 0W9G3ZZ Drainage of Peritoneal Cavity, Percutaneous Approach (ICD-10-PCS; principal; 2018-12-17)
DX: R18.8 Other ascites (principal); D61.818 Other pancytopenia; K65.2 Spontaneous bacterial peritonitis; N17.9 Acute kidney failure, unspecified; B18.2 Chronic viral hepatitis C; K74.60 Unspecified cirrhosis of liver; I10 Essential (primary) hypertension; H54.8 Legal blindness, as defined in USA; E11.9 Type 2 diabetes mellitus without complications; F10.10 Alcohol abuse, uncomplicated; Z94.7 Corneal transplant status; Z87.891 Personal history of nicotine dependence